=== PATIENT | female | born 1945 | race American Indian/Alaskan Native ===

== ENCOUNTER 2017-02-23 07:48 | Inpatient (IN) | payer MEDICARE ==
[2017-02-23 11:34] VITALS: BMI 23.3
[2017-02-23] MEDS ORDERED: Dexamethasone 10 MG in Sodium Chloride 0.9% 50 ML IVPB ONE (11:56)
[2017-02-23] MEDS ORDERED: Lidocaine/Prilocaine CREAM 5GM TP ONE (12:10)
[2017-02-23] MEDS: Sodium Chloride 0.9% 500 ML IV SCH ×2 (12:54→23:34)
[2017-02-23 13:01] LABS: ALB/GLOB RATIO 0.9 (1.0-2.1); ALKALINE PHOSPHATASE 83 U/L (38-126); ALT/SGPT 19 U/L (9-52); AST/SGOT 30 U/L (14-36); BILIRUBIN,TOTAL 0.3 mg/dl (0.2-1.3); BLOOD UREA NITROGEN 11 mg/dl (7-17); CALCIUM 8.8 mg/dL (8.4-10.2); CARBON DIOXIDE 23 mmol/L (22-30); CHLORIDE 110 mmol/L (98-107); GFR AFRICAN-AMERICAN > 60; GLUCOSE,RANDOM 154 mg/dL (65-105); POTASSIUM 3.3 MMOL/L (3.6-5.0); SODIUM 146 mmol/l (132-148); TOTAL PROTEIN 6.6 G/DL (6.3-8.2)
[2017-02-23 13:07] LABS: BASO # 0.1 K/uL (0.0-0.2); BASO % 2.1 % (0.0-2.0); EOS # 0.2 K/uL (0.0-0.7); EOS % 3.4 % (0.0-4.0); HEMATOCRIT 30.4 % (34.0-47.0); LYMPH # 1.9 K/uL (1.0-4.3); LYMPH % 39.5 % (20.0-40.0); MEAN CELL VOLUME 75.8 fl (81.0-99.0); MEAN CORPUSCULAR HEMOGLOBIN 24.8 pg (27.0-31.0); MEAN CORPUSCULAR HGB CONC 32.7 g/dL (33.0-37.0); MEAN PLATELET VOLUME 7.4 fl (7.2-11.7); MONO # 0.8 K/uL (0.0-0.8); NEUT # 1.8 K/uL (1.8-7.0); NRBC % 0.1 % (0.0-0.0); RED CELL DISTRIBUTION WIDTH 21.6 % (11.5-14.5); WHITE BLOOD COUNT 4.7 K/uL (4.8-10.8)
[2017-02-23] MEDS ORDERED: Fosaprepitant 150 MG in Sodium Chloride 0.9% 250 ML IVPB ONE (13:45)
[2017-02-23] MEDS ORDERED: LEUCOVORIN CALCIUM IVPB ONE (14:15)
[2017-02-23] MEDS ORDERED: OXALIPLATIN IV ONE (14:15)
[2017-02-23] MEDS ORDERED: WATER IVPB ONE (14:15)
[2017-02-23] MEDS ORDERED: WATER IV ONE (14:15)
[2017-02-23] MEDS ORDERED: DEXTROSE 5% IV ONE (14:15)
[2017-02-23] MEDS ORDERED: DEXTROSE 5% IVPB ONE (14:15)
[2017-02-23] MEDS ORDERED: SODIUM CHLORIDE 0.9% IV ONE ×3 (16:30→17:00)
[2017-02-23] MEDS ORDERED: BEVACIZUMAB IV ONE (16:30)
[2017-02-23] MEDS ORDERED: FLUOROURACIL IV ONE ×2 (16:30→17:00)
[2017-02-23] MEDS: Enoxaparin 40 mg Syringe SC SCH (18:16)
--- NOTE | 2017-02-23 18:40 | HP ---
HISTORY OF PRESENT ILLNESS: This is a 71-year-old -Slovenian female with history of multiple m edical problems including colorectal cancer on chemotherapy, was admitted to the hospital for the marcia eduled dose of chemotherapy. The patient stated that she has incontinence both to urine and to bowel , more to urine. The patient has been compliant with chemotherapy visits. The patient denied to hav e any nausea or vomiting. REVIEW OF SYSTEMS: Other review of systems is negative. ALLERGIES: No known drug allergies. HOME MEDICATIONS: Lopressor 50 mg q. 12 hours, amlodipine 10 mg daily, risperidone 0.5 mg every 8 ho urs as needed, vitamin C 500 mg daily. PAST MEDICAL HISTORY: Colorectal cancer, hypertension, overactive bladder. SOCIAL HISTORY: No history of smoking, ETOH or substance abuse. FAMILY HISTORY: Noncontributory. PHYSICAL EXAMINATION: GENERAL: The patient is in bed, comfortable, not in any cardiopulmonary distress at the time of this examination. VITAL SIGNS: Blood pressure 150/76, temperature 98, respiratory rate 20, and pulse 84. HEENT: Pupils equal, reactive to light. Normal-appearing mucosa of the conjunctivae, oropharyngeal and nasal membrane mucosa. NECK: Supple, no JVD, no carotid bruit, no lymph node, no thyromegaly. CHEST AND LUNGS: Bilateral symmetrical expansion, good air exchange, no rales, no rhonchi. CARDIOVASCULAR: PMI not localized. S1, S2. No additional sounds. ABDOMEN: Normoactive bowel sounds, no tenderness, no organomegaly, no masses. EXTREMITIES: No cyanosis, no clubbing, no edema. CENTRAL NERVOUS SYSTEM: Alert, awake, oriented x 3. No neurological deficits could be appreciated. ASSESSMENT: Colorectal cancer, overactive bladder, hypertension. PLAN: We will order blood work and follow the results. We will start the patient on Ditropan 5 mg d aily. Oncology consultation with Dr. Miller for chemotherapy orders. Jesus Pandya MD cc: [phone] TT: 02/23/2017 18:40:04 [place]
[2017-02-24] MEDS: Sodium Chloride 0.9% 500 ML IV SCH ×3 (04:27→21:33)
[2017-02-24] MEDS: Enoxaparin 40 mg Syringe SC SCH (09:24)
--- NOTE | 2017-02-24 11:26 | CP.PCM.CON ---
History of Present Illness - History of Present Illness History of Present Illness: This is a 71 yrs old female who was diagnosed to have a colon cancer about 2 months ago. She has a mass in the rectosigmoid area which was almost completely obstructing the lumen. It was decided to give her neoadjuvant chemotherapy with folfox +avastin. She is here for her 4th dose and is doing very well, with no pain, no rectal bleeding. Past h/o Schizophrenic disorder and HTN Past Patient History - Past Medical History & Family History Past Medical History?: Yes - Past Social History Smoking Status: Never Smoked - CARDIAC Hx Cardiac Disorders: No - PULMONARY Hx Respiratory Disorders: No - NEUROLOGICAL Hx Neurological Disorder: No - HEENT Hx HEENT Problems: No - RENAL Hx Chronic Kidney Disease: No - ENDOCRINE/METABOLIC Hx Endocrine Disorders: No - HEMATOLOGICAL/ONCOLOGICAL Hx AIDS: No Hx Anemia: Yes Hx Cancer: Yes Hx Chemotherapy: Yes Hx Human Immunodeficiency Virus (HIV): No - INTEGUMENTARY Hx Dermatological Problems: No - MUSCULOSKELETAL/RHEUMATOLOGICAL Hx Falls: Yes - GASTROINTESTINAL Hx Colitis: Yes - GENITOURINARY/GYNECOLOGICAL Hx Incontinence: Yes - PSYCHIATRIC Hx Substance Use: No - SURGICAL HISTORY Hx Cholecystectomy: Yes Other/Comment: IVC Filter insertion, ifeport insertion - ANESTHESIA Hx Anesthesia: Yes Hx Anesthesia Reactions: No Meds Allergies/Adverse Reactions: Allergies Allergy/AdvReac Type Severity Reaction Status Date / Time No Known Allergies Allergy Verified 01/15/17 18:00 - Medications Medications: Current Medications Acetaminophen (Tylenol 325mg Tab) 650 mg PO Q4 PRN PRN Reason: Fever >100.4 F Amlodipine Besylate (Norvasc) 10 mg PO DAILY [facility] Last Admin: 02/24/17 09:25 Dose: 10 mg Ascorbic Acid (Vitamin C 500 Mg Tab) 500 mg PO DAILY [facility] Last Admin: 02/24/17 09:25 Dose: 500 mg Docusate Sodium (Colace) 100 mg PO DAILY [facility] Last Admin: 02/24/17 09:19 Dose: Not Given Enoxaparin Sodium (Lovenox) 40 mg SC DAILY [facility] PRN Reason: Protocol Last Admin: 02/24/17 09:24 Dose: Not Given Ferrous Sulfate (Feosol) 325 mg PO BID [facility] Last Admin: 02/24/17 09:21 Dose: 325 mg Sodium Chloride (Sodium Chloride 0.9%) 500 mls @ 90 mls/hr IV .Q5H34M [facility] Last Admin: 02/24/17 04:27 Dose: Not Given Fluorouracil 4,056 mg/ Sodium (Chloride) 1,081.12 mls @ 24.571 mls/hr IV ONCE ONE Stop: 02/25/17 12:59 Last Admin: 02/23/17 17:39 Dose: 24.571 mls/hr Metoprolol Tartrate (Lopressor) 50 mg PO Q12 [facility] Last Admin: 02/24/17 09:22 Dose: 50 mg Oxybutynin Chloride (Ditropan Tab) 5 mg PO BID [facility] Last Admin: 02/24/17 09:21 Dose: 5 mg Risperidone (Risperdal Tab) 0.5 mg PO Q8 PRN PRN Reason: Agitation Physical Exam - Additional Findings Additional findings: Physical exam'; Alert, well oriented in no acute distress neck; Supple, no adenopathy Chest; Clear, no rales or rhoncjhi Heart, rsr,no murmur Abd; Soft, no mass, no h/s megaly Results - Vital Signs Recent Vital Signs: Last Vital Signs Temp 97.6 F 02/24/17 08:18 Pulse 74 02/24/17 09:25 Resp 20 02/24/17 08:18 BP 174/81 H 02/24/17 09:25 Pulse Ox 100 02/24/17 08:18 - Labs Result Diagrams: 02/23/17 12:37 02/23/17 12:37 Labs: Laboratory Results - last 24 hr 02/23/17 12:37 WBC 4.7 L RBC 4.01 Hgb 10.0 L Hct 30.4 L MCV 75.8 L MCH 24.8 L MCHC 32.7 L RDW 21.6 H Plt Count 225 MPV 7.4 Neut % (Auto) 38.0 L Lymph % (Auto) 39.5 [place] % (Auto) 17.0 H Eos % (Auto) 3.4 Baso % (Auto) 2.1 H Neut # 1.8 Lymph # 1.9 [place] # 0.8 Eos # 0.2 Baso # 0.1 Sodium 146 Potassium 3.3 L Chloride 110 H Carbon Dioxide 23 Anion Gap 16 BUN 11 Creatinine 0.7 Est GFR ( Amer) > 60 Est GFR (Non-Af Amer) > 60 Random Glucose 154 H Calcium 8.8 Total Bilirubin 0.3 AST 30 ALT 19 Alkaline Phosphatase 83 Total Protein 6.6 Albumin 3.2 L Globulin 3.4 Albumin/Globulin Ratio 0.9 L Carcinoembryonic Ag 471.0 H Assessment & Plan - Assessment and Plan (Free Text) Assessment: Impression; Colon cancer. Plan: Plan; Will give fluorouracil, leucovorin, avastin, and oxaliplatin today then fluorouracil over the next 44 hrs
--- NOTE | 2017-02-24 11:30 | CP.PCM.CON ---
Past Patient History - Past Medical History & Family History Past Medical History?: Yes - Past Social History Smoking Status: Never Smoked - CARDIAC Hx Cardiac Disorders: No - PULMONARY Hx Respiratory Disorders: No - NEUROLOGICAL Hx Neurological Disorder: No - HEENT Hx HEENT Problems: No - RENAL Hx Chronic Kidney Disease: No - ENDOCRINE/METABOLIC Hx Endocrine Disorders: No - HEMATOLOGICAL/ONCOLOGICAL Hx AIDS: No Hx Anemia: Yes Hx Cancer: Yes Hx Chemotherapy: Yes Hx Human Immunodeficiency Virus (HIV): No - INTEGUMENTARY Hx Dermatological Problems: No - MUSCULOSKELETAL/RHEUMATOLOGICAL Hx Falls: Yes - GASTROINTESTINAL Hx Colitis: Yes - GENITOURINARY/GYNECOLOGICAL Hx Incontinence: Yes - PSYCHIATRIC Hx Substance Use: No - SURGICAL HISTORY Hx Cholecystectomy: Yes Other/Comment: IVC Filter insertion, ifeport insertion - ANESTHESIA Hx Anesthesia: Yes Hx Anesthesia Reactions: No Meds Allergies/Adverse Reactions: Allergies Allergy/AdvReac Type Severity Reaction Status Date / Time No Known Allergies Allergy Verified 01/15/17 18:00 - Medications Medications: Current Medications Acetaminophen (Tylenol 325mg Tab) 650 mg PO Q4 PRN PRN Reason: Fever >100.4 F Amlodipine Besylate (Norvasc) 10 mg PO DAILY [facility] Last Admin: 02/24/17 09:25 Dose: 10 mg Ascorbic Acid (Vitamin C 500 Mg Tab) 500 mg PO DAILY [facility] Last Admin: 02/24/17 09:25 Dose: 500 mg Docusate Sodium (Colace) 100 mg PO DAILY [facility] Last Admin: 02/24/17 09:19 Dose: Not Given Enoxaparin Sodium (Lovenox) 40 mg SC DAILY [facility] PRN Reason: Protocol Last Admin: 02/24/17 09:24 Dose: Not Given Ferrous Sulfate (Feosol) 325 mg PO BID [facility] Last Admin: 02/24/17 09:21 Dose: 325 mg Sodium Chloride (Sodium Chloride 0.9%) 500 mls @ 90 mls/hr IV .Q5H34M [facility] Last Admin: 02/24/17 04:27 Dose: Not Given Fluorouracil 4,056 mg/ Sodium (Chloride) 1,081.12 mls @ 24.571 mls/hr IV ONCE ONE Stop: 02/25/17 12:59 Last Admin: 02/23/17 17:39 Dose: 24.571 mls/hr Metoprolol Tartrate (Lopressor) 50 mg PO Q12 [facility] Last Admin: 02/24/17 09:22 Dose: 50 mg Oxybutynin Chloride (Ditropan Tab) 5 mg PO BID [facility] Last Admin: 02/24/17 09:21 Dose: 5 mg Risperidone (Risperdal Tab) 0.5 mg PO Q8 PRN PRN Reason: Agitation Results - Vital Signs Recent Vital Signs: Last Vital Signs Temp 97.6 F 02/24/17 08:18 Pulse 74 02/24/17 09:25 Resp 20 02/24/17 08:18 BP 174/81 H 02/24/17 09:25 Pulse Ox 100 02/24/17 08:18 - Labs Result Diagrams: 02/23/17 12:37 02/23/17 12:37 Labs: Laboratory Results - last 24 hr 02/23/17 12:37 WBC 4.7 L RBC 4.01 Hgb 10.0 L Hct 30.4 L MCV 75.8 L MCH 24.8 L MCHC 32.7 L RDW 21.6 H Plt Count 225 MPV 7.4 Neut % (Auto) 38.0 L Lymph % (Auto) 39.5 [place] % (Auto) 17.0 H Eos % (Auto) 3.4 Baso % (Auto) 2.1 H Neut # 1.8 Lymph # 1.9 [place] # 0.8 Eos # 0.2 Baso # 0.1 Sodium 146 Potassium 3.3 L Chloride 110 H Carbon Dioxide 23 Anion Gap 16 BUN 11 Creatinine 0.7 Est GFR ( Amer) > 60 Est GFR (Non-Af Amer) > 60 Random Glucose 154 H Calcium 8.8 Total Bilirubin 0.3 AST 30 ALT 19 Alkaline Phosphatase 83 Total Protein 6.6 Albumin 3.2 L Globulin 3.4 Albumin/Globulin Ratio 0.9 L Carcinoembryonic Ag 471.0 H
[2017-02-24 11:35] LABS: BLOOD UREA NITROGEN 12 mg/dl (7-17); CALCIUM 9.3 mg/dL (8.4-10.2); CARBON DIOXIDE 22 mmol/L (22-30); CHLORIDE 109 mmol/L (98-107); GFR AFRICAN-AMERICAN > 60; GLUCOSE,RANDOM 291 mg/dL (65-105); SODIUM 144 mmol/l (132-148)
--- NOTE | 2017-02-24 13:28 | PN ---
DATE: 02/24/2017 SUBJECTIVE: The patient is seen today, 02/24/2017. She is on chemotherapy and tolerating well. PHYSICAL EXAMINATION: VITAL SIGNS: Blood pressure is 174/81, temperature 97.6, respiratory rate 20, and pulse is 74. HEENT: Pupils equal, reactive to light. Normal-appearing mucosa of the conjunctivae, oropharyngeal and nasal membrane mucosa. NECK: Supple, no JVD, no carotid bruit, no lymph node, no thyromegaly. CHEST AND LUNGS: Bilateral symmetrical expansion, good air exchange, no rales, no rhonchi. CARDIOVASCULAR: PMI not localized. S1, S2. No additional sounds. ABDOMEN: Normoactive bowel sounds, no tenderness, no organomegaly, no masses. EXTREMITIES: No cyanosis, no clubbing, no edema. CENTRAL NERVOUS SYSTEM: Alert, awake, oriented x 3. No neurological deficits could be appreciated. ASSESSMENT: Colorectal cancer, hypokalemia, hypertension. PLAN: Continue current medications. The patient was started on Ditropan, treating overactive bladde r and if patient remains hypokalemic with hypertension, we will work up for hyperaldosteronism. Jesus Pandya MD cc: [phone] TT: 02/24/2017 13:27:59 Confirmation # [id number] Dictation # [id number]
[2017-02-25] MEDS: Sodium Chloride 0.9% 500 ML IV SCH (02:55)
[2017-02-25 08:17] VITALS: O2SAT 100
[2017-02-25] MEDS: Enoxaparin 40 mg Syringe SC SCH (09:49)
--- NOTE | 2017-02-25 13:16 | CP.PCM.PN ---
Subjective - Date & Time of Evaluation Date of Evaluation: 02/25/17 Time of Evaluation: 13:14 - Subjective Subjective: Pt is on the last day of chemotherapy infusion.No nausea or vomiting. Her appetite is good as well. She will be discharged today with orders to return in 2 weeks for chemotherapy. Objective - Vital Signs/Intake and Output Vital Signs (last 24 hours): Temp Pulse Resp BP Pulse Ox 98.2 F 64 18 153/73 H 100 02/25/17 08:17 02/25/17 09:25 02/25/17 08:17 02/25/17 09:25 02/25/17 08:17 - Medications Medications: Current Medications Acetaminophen (Tylenol 325mg Tab) 650 mg PO Q4 PRN PRN Reason: Fever >100.4 F Amlodipine Besylate (Norvasc) 10 mg PO DAILY [facility] Last Admin: 02/25/17 09:50 Dose: Not Given Ascorbic Acid (Vitamin C 500 Mg Tab) 500 mg PO DAILY [facility] Last Admin: 02/25/17 09:50 Dose: Not Given Docusate Sodium (Colace) 100 mg PO DAILY [facility] Last Admin: 02/25/17 09:21 Dose: Not Given Enoxaparin Sodium (Lovenox) 40 mg SC DAILY [facility] PRN Reason: Protocol Last Admin: 02/25/17 09:49 Dose: Not Given Ferrous Sulfate (Feosol) 325 mg PO BID [facility] Last Admin: 02/25/17 09:27 Dose: 325 mg Sodium Chloride (Sodium Chloride 0.9%) 500 mls @ 90 mls/hr IV .Q5H34M [facility] Last Admin: 02/25/17 02:55 Dose: Not Given Metoprolol Tartrate (Lopressor) 50 mg PO Q12 [facility] Last Admin: 02/25/17 09:25 Dose: 50 mg Oxybutynin Chloride (Ditropan Tab) 5 mg PO BID [facility] Last Admin: 02/25/17 09:26 Dose: 5 mg Risperidone (Risperdal Tab) 0.5 mg PO Q8 PRN PRN Reason: Agitation - Labs Labs: 02/23/17 12:37 02/24/17 11:15
[2017-02-25 13:56] LABS: HEMATOCRIT 31.3 % (34.0-47.0); MEAN CELL VOLUME 75.6 fl (81.0-99.0); MEAN CORPUSCULAR HEMOGLOBIN 24.8 pg (27.0-31.0); MEAN CORPUSCULAR HGB CONC 32.7 g/dL (33.0-37.0); RED CELL DISTRIBUTION WIDTH 21.9 % (11.5-14.5); WHITE BLOOD COUNT 3.9 K/uL (4.8-10.8)
[2017-02-25 14:07] LABS: CHLORIDE 106 mmol/L (98-107); POTASSIUM 3.7 MMOL/L (3.6-5.0); SODIUM 139 mmol/l (132-148)
[2017-02-25 14:09] LABS: GFR AFRICAN-AMERICAN > 60
[2017-02-25 14:10] LABS: BLOOD UREA NITROGEN 13 mg/dl (7-17); CALCIUM 8.7 mg/dL (8.4-10.2); CARBON DIOXIDE 25 mmol/L (22-30); GLUCOSE,RANDOM 164 mg/dL (65-105)
[2017-02-25 17:09] VITALS: BP 138/58; PULSE 62; RESP 20; TEMP 98.5
--- NOTE | 2017-02-26 00:38 | DS ---
REASON FOR ADMISSION: This is a 71-year-old -Martiniquais female with history of cancer colon, tamez s been on chemo therapy. She was admitted for her fourth cycle of chemotherapy. COURSE OF HOSPITALIZATION: The patient had oncology consultation done by Dr. Miller. The patient was started on her regular scheduled dose of chemotherapy and she tolerated it well. The patient was co mplaining of urinary incontinence such as overactive bladder. The patient was started on oxybutynin. This patient was discharged in a stable condition to follow up with her primary care physician and with oncology. FINAL DIAGNOSES: 1. Colorectal cancer, on chemotherapy. 2. Anemia, multifactorial. 3. Hypertension. 4. Overactive bladder. Jesus Pandya MD cc: 167 TT: 02/26/2017 00:38:30 [place]
== END 2017-02-25 18:32 | disposition home or self-care (01) | DRG 847 ==
LOC: H.MEDSURG1 11:43
PROVIDERS: ADMIT Internal Medicine; ATTEND Internal Medicine
DX: Z51.11 Encounter for antineoplastic chemotherapy (principal); C19 Malignant neoplasm of rectosigmoid junction; D64.9 Anemia, unspecified; I10 Essential (primary) hypertension; N32.81 Overactive bladder; R32 Unspecified urinary incontinence; E87.6 Hypokalemia

== ENCOUNTER 2017-03-09 09:34 | Inpatient (IN) | payer MEDICARE ==
[2017-03-09 10:53] VITALS: BMI 22.5
[2017-03-09] MEDS ORDERED: Lidocaine/Prilocaine CREAM 5GM TP ONE ×2 (11:40→11:50)
[2017-03-09] MEDS ORDERED: Dexamethasone 10 MG in Sodium Chloride 0.9% 50 ML IVPB ONE (12:15)
[2017-03-09] MEDS ORDERED: Fosaprepitant 150 MG in Sodium Chloride 0.9% 250 ML IVPB ONE (12:19)
[2017-03-09 12:38] LABS: ALB/GLOB RATIO 0.9 (1.0-2.1); ALKALINE PHOSPHATASE 82 U/L (38-126); ALT/SGPT 18 U/L (9-52); AST/SGOT 26 U/L (14-36); BILIRUBIN,TOTAL 0.4 mg/dl (0.2-1.3); BLOOD UREA NITROGEN 10 mg/dl (7-17); CALCIUM 9.3 mg/dL (8.4-10.2); CARBON DIOXIDE 26 mmol/L (22-30); CHLORIDE 106 mmol/L (98-107); GFR AFRICAN-AMERICAN > 60; GLUCOSE,RANDOM 178 mg/dL (65-105); POTASSIUM 3.4 MMOL/L (3.6-5.0); SODIUM 140 mmol/l (132-148); TOTAL PROTEIN 6.9 G/DL (6.3-8.2)
[2017-03-09 12:42] LABS: BASO # 0.1 K/uL (0.0-0.2); BASO % 1.9 % (0.0-2.0); EOS # 0.1 K/uL (0.0-0.7); EOS % 4.2 % (0.0-4.0); HEMATOCRIT 31.3 % (34.0-47.0); LYMPH # 1.4 K/uL (1.0-4.3); MEAN CORPUSCULAR HGB CONC 32.9 g/dL (33.0-37.0); MEAN PLATELET VOLUME 7.2 fl (7.2-11.7); MONO # 0.6 K/uL (0.0-0.8); MONO % 19.7 % (0.0-10.0); NEUT # 0.9 K/uL (1.8-7.0); NEUT % 28.2 % (50.0-75.0); NRBC % 0.3 % (0.0-0.0); RED CELL DISTRIBUTION WIDTH 21.5 % (11.5-14.5); WHITE BLOOD COUNT 3.1 K/uL (4.8-10.8)
[2017-03-09] MEDS: Sodium Chloride 0.9% 500 ML IV SCH ×2 (12:57→17:31)
[2017-03-09] MEDS ORDERED: Potassium Chloride 20 mEq ER Tab PO ONE (13:03)
[2017-03-09] MEDS ORDERED: WATER IVPB ONE (13:15)
[2017-03-09] MEDS ORDERED: OXALIPLATIN IV ONE (13:15)
[2017-03-09] MEDS ORDERED: WATER IV ONE (13:15)
[2017-03-09] MEDS ORDERED: DEXTROSE 5% IVPB ONE (13:15)
[2017-03-09] MEDS ORDERED: BEVACIZUMAB IV ONE (13:15)
[2017-03-09] MEDS ORDERED: SODIUM CHLORIDE 0.9% IV ONE ×3 (13:15→15:45)
[2017-03-09] MEDS ORDERED: DEXTROSE 5% IV ONE (13:15)
[2017-03-09] MEDS ORDERED: LEUCOVORIN CALCIUM IVPB ONE (13:15)
[2017-03-09] MEDS ORDERED: FLUOROURACIL IV ONE ×2 (15:15→15:45)
--- NOTE | 2017-03-09 16:27 | CP.PCM.CON ---
History of Present Illness - History of Present Illness History of Present Illness: This is a 71 yrs old female who was diagnosed to have a almost completely obstructing mass in the rectosigmoid area. She was inoperable and it was decided to give her neoadjuvant chemotherapy. Initially her appetite was very poor, and she has fair amount of rectal bleeding. Since she has been getting the chemo, her appetite is good, no more rectal bleeding. She is admitted for chemo with FOLFOX + Avastin. After the next treatment she will be reevaluated for surgery. She has a past h/o HTN and bipolar disorder. Past Patient History - Past Medical History & Family History Past Medical History?: Yes - Past Social History Smoking Status: Former Smoker - CARDIAC Hx Cardiac Disorders: No - PULMONARY Hx Respiratory Disorders: No - NEUROLOGICAL Hx Neurological Disorder: No - HEENT Hx HEENT Problems: No - RENAL Hx Chronic Kidney Disease: No - ENDOCRINE/METABOLIC Hx Endocrine Disorders: No - HEMATOLOGICAL/ONCOLOGICAL Hx AIDS: No Hx Anemia: Yes Hx Cancer: Yes Hx Chemotherapy: Yes Hx Human Immunodeficiency Virus (HIV): No - INTEGUMENTARY Hx Dermatological Problems: No - MUSCULOSKELETAL/RHEUMATOLOGICAL Hx Falls: Yes - GASTROINTESTINAL Hx Colitis: No - GENITOURINARY/GYNECOLOGICAL Hx Incontinence: Yes - PSYCHIATRIC Hx Substance Use: No - SURGICAL HISTORY Hx Cholecystectomy: Yes Other/Comment: IVC Filter insertion, ifeport insertion - ANESTHESIA Hx Anesthesia: Yes Hx Anesthesia Reactions: No Meds Allergies/Adverse Reactions: Allergies Allergy/AdvReac Type Severity Reaction Status Date / Time No Known Allergies Allergy Verified 01/15/17 18:00 - Medications Medications: Current Medications Acetaminophen (Tylenol 325mg Tab) 650 mg PO Q4 PRN PRN Reason: Fever >100.4 F Amlodipine Besylate (Norvasc) 10 mg PO DAILY [facility] Ascorbic Acid (Vitamin C 500 Mg Tab) 500 mg PO DAILY [facility] Enoxaparin Sodium (Lovenox) 40 mg SC DAILY [facility] PRN Reason: Protocol Ferrous Sulfate (Feosol) 325 mg PO BID [facility] Sodium Chloride (Sodium Chloride 0.9%) 500 mls @ 90 mls/hr IV .Q5H34M [facility] Last Admin: 03/09/17 12:57 Dose: 90 mls/hr Fluorouracil 4,056 mg/ Sodium (Chloride) 1,081.12 mls @ 24.571 mls/hr IV ONCE ONE PRN Reason: As Directed Stop: 03/11/17 11:44 Metoprolol Tartrate (Lopressor) 50 mg PO Q12 [facility] Risperidone (Risperdal Tab) 0.5 mg PO Q8 PRN PRN Reason: Agitation Physical Exam - Additional Findings Additional findings: Physical Exam; alert, well opriented in no acute distress neck supple, no adenopathy Chest; Clear, no rales or rhonchi Heart; RSR, n o murmur Abd soft, no mass no h/s megaly Results - Vital Signs Recent Vital Signs: Last Vital Signs Temp Pulse Resp 20 03/09/17 11:18 BP Pulse Ox - Labs Result Diagrams: 03/09/17 12:15 03/09/17 12:15 Labs: Laboratory Results - last 24 hr 03/09/17 03/09/17 12:15 12:15 WBC 3.1 L RBC 4.11 Hgb 10.3 L Hct 31.3 L MCV 76.0 L MCH 25.0 L MCHC 32.9 L RDW 21.5 H Plt Count 222 MPV 7.2 Neut % (Auto) 28.2 L Lymph % (Auto) 46.0 H [place] % (Auto) 19.7 H Eos % (Auto) 4.2 H Baso % (Auto) 1.9 Neut # 0.9 L Lymph # 1.4 [place] # 0.6 Eos # 0.1 Baso # 0.1 Sodium 140 Potassium 3.4 L Chloride 106 Carbon Dioxide 26 Anion Gap 11 BUN 10 Creatinine 0.7 Est GFR ( Amer) > 60 Est GFR (Non-Af Amer) > 60 Random Glucose 178 H Calcium 9.3 Total Bilirubin 0.4 AST 26 ALT 18 Alkaline Phosphatase 82 Total Protein 6.9 Albumin 3.3 L Globulin 3.6 Albumin/Globulin Ratio 0.9 L Carcinoembryonic Ag 377.0 H Assessment & Plan - Assessment and Plan (Free Text) Assessment: Impression; Colon cancer admitted for chemotherapy. Plan: Plan; Will give oxaliplatin, leucovorin, fluorouracil and avastin today, then continue the fluorouracil for 44 hrs - Date & Time Date: 03/09/17 Time: 16:31
--- NOTE | 2017-03-09 22:05 | HP ---
HISTORY OF PRESENT ILLNESS: This is a 71-year-old -[place]oz[place] female, who was admitted for chem otherapy cycle. The patient has been diagnosed with metastatic colorectal cancer for which she is se eking chemotherapy. The patient denied to have any fever, shortness of breath. HOME MEDICATIONS: Risperidone 0.5 mg three times a day, amlodipine 10 mg daily, metoprolol 50 mg manoj ry 12 hours, ferrous sulfate 325 mg twice a day, vitamin C 500 mg daily. SOCIAL HISTORY: No history of smoking, ETOH, or substance abuse. PHYSICAL EXAMINATION: GENERAL: The patient is in bed, comfortable, not in any cardiopulmonary distress. VITAL SIGNS: Blood pressure of 147/78, temperature 98.5, respiratory rate 20, and pulse 64. HEENT: Pupils equal, reactive to light. Normal-appearing mucosa of the conjunctivae, oropharyngeal, and nasal membrane mucosa. NECK: Supple, no JVD, no carotid bruit, no lymph node, no thyromegaly. CHEST AND LUNGS: Bilateral symmetrical expansion, good air exchange, no rales, no rhonchi. CARDIOVASCULAR: PMI not localized. S1, S2. No additional sounds. ABDOMEN: Normoactive bowel sounds, no tenderness, no organomegaly, no masses. EXTREMITIES: No cyanosis, no clubbing, no edema. CENTRAL NERVOUS SYSTEM: Alert, awake, oriented x 2. No neurological deficits could be appreciated. ASSESSMENT: 1. Metastatic colorectal cancer, currently on chemotherapy. 2. Hypertension. 3. Overactive bladder. PLAN: 1. Oncology consultation and follow recommendations. 2. Check complete blood count and check for any electrolyte abnormalities, and complete blood count. Jesus Pandya MD cc: 167 TT: 03/09/2017 22:04:12 [place]
[2017-03-10] MEDS: Enoxaparin 40 mg Syringe SC SCH ×2 (09:28→09:37)
--- NOTE | 2017-03-10 10:18 | CP.PCM.PN ---
Subjective - Date & Time of Evaluation Date of Evaluation: 03/10/17 Time of Evaluation: 10:15 - Subjective Subjective: Pt has no more side effects from the chemotherapy given yesterday. She is on the 2nd day of fluorocil infusion, and doing well. She will be discharged tomorrow after the infusion finishes to return in 2 weeks for the next course of chemotherapy Objective - Vital Signs/Intake and Output Vital Signs (last 24 hours): Temp Pulse Resp BP Pulse Ox 98.3 F 76 18 167/84 H 99 03/10/17 08:31 03/10/17 09:28 03/10/17 08:31 03/10/17 09:28 03/10/17 08:31 - Medications Medications: Current Medications Acetaminophen (Tylenol 325mg Tab) 650 mg PO Q4 PRN PRN Reason: Fever >100.4 F Amlodipine Besylate (Norvasc) 10 mg PO DAILY [facility] Last Admin: 03/10/17 09:28 Dose: 10 mg Ascorbic Acid (Vitamin C 500 Mg Tab) 500 mg PO DAILY [facility] Last Admin: 03/10/17 09:29 Dose: 500 mg Enoxaparin Sodium (Lovenox) 40 mg SC DAILY [facility] PRN Reason: Protocol Last Admin: 03/10/17 09:37 Dose: Not Given Ferrous Sulfate (Feosol) 325 mg PO BID [facility] Last Admin: 03/10/17 09:26 Dose: 325 mg Sodium Chloride (Sodium Chloride 0.9%) 500 mls @ 90 mls/hr IV .Q5H34M [facility] Last Admin: 03/09/17 17:31 Dose: Not Given Fluorouracil 4,056 mg/ Sodium (Chloride) 1,081.12 mls @ 24.571 mls/hr IV ONCE ONE PRN Reason: As Directed Stop: 03/11/17 11:44 Last Admin: 03/09/17 17:49 Dose: 24.571 mls/hr Metoprolol Tartrate (Lopressor) 50 mg PO Q12 [facility] Last Admin: 03/10/17 09:26 Dose: 50 mg Oxybutynin Chloride (Ditropan Tab) 5 mg PO DAILY [facility] Last Admin: 03/10/17 09:26 Dose: 5 mg Risperidone (Risperdal Tab) 0.5 mg PO Q8 PRN PRN Reason: Agitation - Labs Labs: 03/09/17 12:15 03/09/17 12:15
--- NOTE | 2017-03-10 13:33 | PQF GENQUE ---
Dr. Pandya, Is there an associated diagnosis to go along with the following clinical labs and medication ordered ? WBC: 3.1; H/H:10.3/31.3; ferrous sulfate 325 mg po BID OR: Disagree OR: Other explanation of clinical findings Oncology consult: Hx Anemia: Yes Assessment: Impression; Colon cancer admitted for chemotherapy This form is a permanent part of the medical record Clarification of your documentation is requested to better reflect the severity of illness and intensity of treatment of your patient. Indicators present [] Specify: [] [] Specify: [] [] Specify: [] [] Specify: [] Location in the medical record that reflects the above clinical findings: [] Treatment Provided: [] PHYSICIAN'S RESPONSE Based on your medical judgment of the clinical indicators outlined above please clarify the following: [] Practitioner response [] If unable to determine, please check the box, sign and date. Present On Admission (POA) Indicator: [] Present at the time of admission [] Not present at the time of admission [] Clinically Undetermined In responding to this query, please exercise your independent professional judgment. The fact that a question is asked does not imply that any particular answer is desired or expected. Thank you for your clarification on this documentation. If you have any questions please call. * Thank you, Kelly Lucas RN BSN ext. #[phone] MTDD
[2017-03-10 16:29] VITALS: O2SAT 100
[2017-03-10] MEDS: Sodium Chloride 0.9% 500 ML IV SCH ×2 (16:51→16:52)
[2017-03-11 06:59] LABS: HEMATOCRIT 31.8 % (34.0-47.0); MEAN CELL VOLUME 76.3 fl (81.0-99.0); MEAN CORPUSCULAR HGB CONC 32.7 g/dL (33.0-37.0); RED CELL DISTRIBUTION WIDTH 21.9 % (11.5-14.5); WHITE BLOOD COUNT 2.7 K/uL (4.8-10.8)
[2017-03-11 07:17] LABS: BLOOD UREA NITROGEN 12 mg/dl (7-17); CALCIUM 9.1 mg/dL (8.4-10.2); CARBON DIOXIDE 21 mmol/L (22-30); CHLORIDE 109 mmol/L (98-107); GFR AFRICAN-AMERICAN > 60; GLUCOSE,RANDOM 134 mg/dL (65-105); POTASSIUM 3.8 MMOL/L (3.6-5.0); SODIUM 139 mmol/l (132-148)
[2017-03-11] MEDS: Sodium Chloride 0.9% 500 ML IV SCH (08:25)
[2017-03-11] MEDS: Enoxaparin 40 mg Syringe SC SCH (08:26)
[2017-03-11 08:31] VITALS: BP 172/79; PULSE 54; RESP 20; TEMP 98.2
--- NOTE | 2017-03-11 09:55 | CP.PCM.PN ---
Subjective - Date & Time of Evaluation Date of Evaluation: 03/11/17 Time of Evaluation: 09:52 - Subjective Subjective: Pt had some abdominal cramps today. No constipation or diarrhea,. She is on her 3rd day of the fluorouracil infusion. Will be discharged after the infusion finishes. She will return on thursday for the neulasta. Objective - Vital Signs/Intake and Output Vital Signs (last 24 hours): Temp Pulse Resp BP Pulse Ox 98.2 F 54 L 20 172/79 H 100 03/11/17 08:31 03/11/17 08:31 03/11/17 08:31 03/11/17 08:31 03/11/17 08:31 - Medications Medications: Current Medications Acetaminophen (Tylenol 325mg Tab) 650 mg PO Q4 PRN PRN Reason: Fever >100.4 F Amlodipine Besylate (Norvasc) 10 mg PO DAILY [facility] Last Admin: 03/11/17 08:24 Dose: 10 mg Ascorbic Acid (Vitamin C 500 Mg Tab) 500 mg PO DAILY [facility] Last Admin: 03/11/17 08:24 Dose: 500 mg Dicyclomine HCl (Bentyl) 10 mg PO TID PRN PRN Reason: Irritable bowel symptoms Enoxaparin Sodium (Lovenox) 40 mg SC DAILY [facility] PRN Reason: Protocol Last Admin: 03/11/17 08:26 Dose: Not Given Ferrous Sulfate (Feosol) 325 mg PO BID [facility] Last Admin: 03/11/17 08:25 Dose: 325 mg Sodium Chloride (Sodium Chloride 0.9%) 500 mls @ 90 mls/hr IV .Q5H34M [facility] Last Admin: 03/11/17 08:25 Dose: Not Given Fluorouracil 4,056 mg/ Sodium (Chloride) 1,081.12 mls @ 24.571 mls/hr IV ONCE ONE PRN Reason: As Directed Stop: 03/11/17 11:44 Last Admin: 03/09/17 17:49 Dose: 24.571 mls/hr Metoprolol Tartrate (Lopressor) 50 mg PO Q12 [facility] Last Admin: 03/11/17 08:25 Dose: 50 mg Oxybutynin Chloride (Ditropan Tab) 5 mg PO DAILY [facility] Last Admin: 03/11/17 08:24 Dose: 5 mg Risperidone (Risperdal Tab) 0.5 mg PO Q8 PRN PRN Reason: Agitation - Labs Labs: 03/11/17 06:20 03/11/17 06:20
--- NOTE | 2017-03-16 21:32 | DS ---
REASON FOR ADMISSION: This is a 71-year-old female with history of colorectal cance r, was admitted for course of the chemotherapy. COURSE OF HOSPITALIZATION: The patient was admitted to medical floor and she had blood work that was unremarkable. The patient had hematology/oncology consult done by Dr. Miller and she was started on her scheduled dose of chemotherapy that she tolerated well and she was discharged home in stable cond ition to follow with Dr. Pandya and with Dr. Miller. FINAL DIAGNOSES: Colorectal cancer, hypertension, overactive bladder. [facility] S Mumtaz MCCORMICK cc: [phone] TT: 03/16/2017 21:31:36 ln
== END 2017-03-11 17:10 | disposition home or self-care (01) | DRG 847 ==
LOC: H.MEDSURG1 11:12
PROVIDERS: ADMIT Internal Medicine; ATTEND Internal Medicine
DX: Z51.11 Encounter for antineoplastic chemotherapy (principal); C19 Malignant neoplasm of rectosigmoid junction; D63.0 Anemia in neoplastic disease; I10 Essential (primary) hypertension; N32.81 Overactive bladder; D63.8 Anemia in other chronic diseases classified elsewhere; F31.9 Bipolar disorder, unspecified; Z87.891 Personal history of nicotine dependence

== ENCOUNTER 2017-03-16 12:31 | Inpatient (IN) | payer MEDICARE ==
[2017-03-16 12:31] VITALS: BMI 23.1
--- NOTE | 2017-03-16 13:17 | ED PDOC ---
HPI: General Adult Time Seen by Provider: 03/16/17 12:46 Chief Complaint (Nursing): Altered Mental Status Chief Complaint (Provider): confusion / agitation History Per: Patient History/Exam Limitations: no limitations Additional Complaint(s): 71yo female brought in by ambulance for confusion and agitation that began today , according to daughter who made 911 call. Patient reports she is not agitated or confused. Pt says daughter and mother do not agree on everything and daughter thinks patient has bipolar disorder. Per EMS and patient, no slurred speech, dizzziness, headache, weakness. Onset unknown. patient was scheduled to come to the hospital for neupogen injection today. PMD: Jane Miller Past Medical History Reviewed: Historical Data, Nursing Documentation, Vital Signs Vital Signs: Last Vital Signs Temp 97 F L 03/17/17 05:33 Pulse 87 03/17/17 05:33 Resp 18 03/17/17 05:33 BP 163/89 H 03/17/17 05:33 Pulse Ox 100 03/17/17 05:40 - Medical History PMH: Anemia, Arthritis, Bipolar Disorder, Malignancy (colon ca, ), Schizophrenia Denies: HIV, Chronic Kidney Disease - Surgical History Surgical History: Cholecystectomy - Family History Family History: States: Unknown Family Hx - Home Medications Home Medications: Ambulatory Orders Medication Instructions Recorded Acetaminophen [Tylenol 325mg tab] 650 mg PO Q4 PRN #30 tab 01/15/17 Ferrous Sulfate [Feosol] 325 mg PO BID #60 tab 01/15/17 Ascorbic Acid [Vitamin C 500 mg 500 mg PO DAILY #30 tab 01/28/17 Tab] Metoprolol Tartrate [Lopressor] 50 mg PO Q12 #60 tab 01/28/17 amLODIPine [Norvasc] 10 mg PO DAILY #30 tab 01/28/17 risperiDONE [RisperDAL Tab] 0.5 mg PO Q8 PRN #10 tab 01/28/17 Oxybutynin [Ditropan Tab] 5 mg PO DAILY #30 tab 03/11/17 - Allergies Allergies/Adverse Reactions: Allergies Allergy/AdvReac Type Severity Reaction Status Date / Time No Known Allergies Allergy Verified 01/15/17 18:00 Review of Systems ROS Statement: Except As Marked, All Systems Reviewed And Found Negative Neurological: Negative for: Change in Speech, Confusion, Other (agitation) Physical Exam - Reviewed Nursing Documentation Reviewed: Yes Vital Signs Reviewed: Yes - Physical Exam Appears: Positive for: Well, Non-toxic, No Acute Distress Head Exam: Positive for: ATRAUMATIC, NORMAL INSPECTION, NORMOCEPHALIC Skin: Positive for: Warm, Dry Eye Exam: Positive for: EOMI, PERRL Cardiovascular/Chest: Positive for: Regular Rate, Rhythm Respiratory: Positive for: Normal Breath Sounds. Negative for: Rales, Rhonchi, Wheezing Extremity: Positive for: Normal ROM Neurologic/Psych: Positive for: Alert, Oriented (x3), Other (calm, cooperative) . Negative for: Motor/Sensory Deficits - Laboratory Results Result Diagrams: 03/16/17 20:00 03/16/17 20:00 - ECG O2 Sat by Pulse Oximetry: 100 Medical Decision Making Medical Decision Makin Consider conditions such as brain mass, bipolar disorder, dementia, substance abuse. Plan: CT Head Labs reassess crisis reeval Discussed with Dr Miller who recommends neupogen injection in ED and discharge 1700 Pt is alert awake and Ox3. Pt is cleared by Dr Edmonds for discharge. Pt refuses testing and CT head. Pt refuses to understand AMA and discharge instructions. Pt became aggressive. Pt was restrained after face and face contact. 1800 Crisis reeval requested. Pending medical clearance. ![address] Pandya who agrees that there are no contraindications to medically clear the patient for psych admission since is on outpatient chemo with next cycle in 2 weeks. Disposition - Clinical Impression Clinical Impression: Dementia with behavioral disturbance - Patient ED Disposition Is Patient to be Admitted: Transfer of Care Counseled Patient/Family Regarding: Studies Performed, Diagnosis - Disposition Disposition: Transfer of Care Disposition Time: 19:00 Condition: STABLE Patient Signed Over To: Dulce Richard Handoff Comments: pending medical clearance Additional Comments - Additional Comments Additional Comments: Scribe Attestation: Documented by Donnell Koch acting as a scribe for Isabel Chan MD. Provider Scribe Attestation: All medical record entries made by the Scribe were at my direction and personally dictated by me. I have reviewed the chart and agree that the record accurately reflects my personal performance of the history, physical exam, medical decision making, and the department course for this patient. I have also personally directed, reviewed, and agree with the discharge instructions and disposition.
--- NOTE | 2017-03-16 18:57 | CT ---
PROCEDURE: CT HEAD WITHOUT CONTRAST. HISTORY: AMS COMPARISON: None available. TECHNIQUE: Axial computed tomography images were obtained through the head/brain without intravenous contrast. Radiation dose: Total exam DLP = 1063.14 mGy-cm. This CT exam was performed using one or more of the following dose reduction techniques: Automated exposure control, adjustment of the mA and/or kV according to patient size, and/or use of iterative reconstruction technique. FINDINGS: HEMORRHAGE: No intracranial hemorrhage. BRAIN: Diffuse atrophy with prominence of the ventricles and sulci noted. No mass effect or edema. Intracranial atherosclerotic calcifications. Scattered periventricular and subcortical white matter hypodensities, which are nonspecific, but often seen with chronic microvascular ischemic disease. Please note that MRI with diffusion imaging is more sensitive in the detection of acute ischemic event. VENTRICLES: No hydrocephalus. CALVARIUM: Unremarkable. PARANASAL SINUSES: Small opacification/fluid within the left sphenoid sinus. MASTOID AIR CELLS: Unremarkable as visualized. No inflammatory changes. OTHER FINDINGS: None. IMPRESSION: Generalized atrophy. Moderate nonspecific white matter changes. Please note that MRI with diffusion imaging is more sensitive in the detection of acute ischemic event. Small opacification/fluid within the left sphenoid sinus. Correlate clinically for sinusitis.
--- NOTE | 2017-03-16 19:34 | ED PDOC ---
- Laboratory Results Result Diagrams: 03/16/17 20:00 03/16/17 20:00 - ECG O2 Sat by Pulse Oximetry: 100 (RA) Pulse Ox Interpretation: Normal Medical Decision Making Medical Decision Makin:00 Patient transferred over to provider by Dr. Chan. Pending lab work and crisis admission. Initial Plan: * Chest X-Ray * Urinalysis * Urine Culture * Potassium Chloride 20 meq PO * Reevaluation 08:57 Labs are back. Patient will be given Potassium Chloride and is medically cleared. Awaiting chest x-ray, urinalysis, and urine culture. 1855: CT head impression: Generalized atrophy. Moderate nonspecific white matter changes. Please note that MRI with diffusion imaging is more sensitive in the detection of acute ischemic event. Small opacification/fluid within the left sphenoid sinus. Correlate clinically for sinusitis. 2350: Patient is medically cleared. Urine shows no large infection. CXR unchanged compared to prior. slight anemia noted on bloodwork. Dx: dementia with behavioral disturbance and psychotic features as per dr mac needs admission Scribe Attestation: Documented by Donnell Klein, acting as a scribe for Dulce Richard MD. Provider Scribe Attestation: All medical record entries made by the Scribe were at my direction and personally dictated by me. I have reviewed the chart and agree that the record accurately reflects my personal performance of the history, physical exam, medical decision making, and the department course for this patient. I have also personally directed, reviewed, and agree with the discharge instructions and disposition. Disposition - Clinical Impression Clinical Impression: Dementia with behavioral disturbance - POA Present On Arrival: None - Disposition Disposition: Admitted as In-Patient Disposition Time: 22:50 Condition: STABLE
[2017-03-16 20:08] LABS: BASO % 0.7 % (0.0-2.0); EOS # 0.3 K/uL (0.0-0.7); EOS % 5.6 % (0.0-4.0); HEMATOCRIT 30.9 % (34.0-47.0); LYMPH # 1.9 K/uL (1.0-4.3); LYMPH % 30.7 % (20.0-40.0); MEAN CELL VOLUME 77.6 fl (81.0-99.0); MEAN CORPUSCULAR HEMOGLOBIN 24.8 pg (27.0-31.0); MEAN CORPUSCULAR HGB CONC 31.9 g/dL (33.0-37.0); MEAN PLATELET VOLUME 7.3 fl (7.2-11.7); MONO # 0.5 K/uL (0.0-0.8); MONO % 8.5 % (0.0-10.0); NEUT # 3.4 K/uL (1.8-7.0); NEUT % 54.5 % (50.0-75.0); NRBC % 0.1 % (0.0-0.0); RED CELL DISTRIBUTION WIDTH 22.2 % (11.5-14.5); WHITE BLOOD COUNT 6.2 K/uL (4.8-10.8)
[2017-03-16 20:20] LABS: ALCOHOL SERUM < 10 mg/dl (0-10); BLOOD UREA NITROGEN 9 mg/dl (7-17); CALCIUM 8.8 mg/dL (8.4-10.2); CARBON DIOXIDE 24 mmol/L (22-30); CHLORIDE 109 mmol/L (98-107); GFR AFRICAN-AMERICAN > 60; GLUCOSE,RANDOM 165 mg/dL (65-105); POTASSIUM 3.4 MMOL/L (3.6-5.0); SODIUM 142 mmol/l (132-148)
[2017-03-16] MEDS ORDERED: Potassium Chloride 20 mEq ER Tab PO ONE (20:56)
[2017-03-16 21:02] VITALS: O2SAT 100
[2017-03-16 22:38] LABS: RBC URINE 1 /hpf (0-3); URINE BILIRUBIN NEGATIVE (NEGATIVE); URINE BLOOD NEGATIVE (NEGATIVE); URINE COLOR YELLOW (YELLOW); URINE GLUCOSE (UA) NEG (Normal); URINE KETONE NEGATIVE (NEGATIVE); URINE LEUKOCYTE ESTERASE TRACE Leu/uL (Negative); URINE PROTEIN NEGATIVE (NEGATIVE); URINE UROBILINOGEN 0.2-1.0 mg/dL (0.2-1.0); WBC URINE 2 /hpf (0-5)
[2017-03-17] MEDS ORDERED: Magnesium Hydroxide Susp 30 ml UD PO PRN (01:21)
[2017-03-17] MEDS ORDERED: Bismuth Subsalicylate 262 mg/15 ml Sus (240 ml) PO PRN (01:21)
[2017-03-17] MEDS ORDERED: Alum-Mag Hydrox-Simethicone Susp (30 mL) PO PRN (01:21)
[2017-03-17 08:26] LABS: CHOLESTEROL 220 mg/dL (0-199)
[2017-03-17 08:31] LABS: IRON 49 ug/dL (37-170)
[2017-03-17 08:43] LABS: T4 14.9 ug/dl (5.5-11.0)
[2017-03-17 08:57] LABS: THYROID STIMULATING HORMONE 1.98 mIU/ML (0.46-4.68)
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
--- NOTE | 2017-03-17 11:59 | RAD ---
HISTORY: psych COMPARISON: 01/09/2017 FINDINGS: LUNGS: No active pulmonary disease. PLEURA: No significant pleural effusion identified, no pneumothorax apparent. CARDIOVASCULAR: Left subclavian central venous infusion port unchanged. OSSEOUS STRUCTURES: No significant abnormalities. VISUALIZED UPPER ABDOMEN: Normal. OTHER FINDINGS: None. IMPRESSION: No active disease.
--- NOTE | 2017-03-17 19:51 | CP.PCM.PN ---
Subjective - Date & Time of Evaluation Date of Evaluation: 03/17/17 Time of Evaluation: 19:00 - Subjective Subjective: Called by nurse to evaluate patient s/p fall in unit. As per patient she was standing and leaned to the door ,but the door moved and she lost balance and fell to the floor. She states that was able to brake her fall with her hands, denies any trauma to the head, LOC, dizziness, palpitations, pain . She is able to move all 4 extremities physical exam showed no pbvious signs of trauma , no tenderness with palpation BP 168/89 HR 88 Continue monitoring in psych unit No need for any imaging or other work up at this time Objective - Vital Signs/Intake and Output Vital Signs (last 24 hours): Temp Pulse Resp BP Pulse Ox 97.1 F L 86 20 175/86 H 100 03/17/17 15:52 03/17/17 15:52 03/17/17 15:52 03/17/17 15:52 03/17/17 07:31 - Medications Medications: Current Medications Acetaminophen (Tylenol 325mg Tab) 650 mg PO Q4 PRN PRN Reason: Pain, moderate (4-7) Al Hydrox/Mg Hydrox/Simethicone (Maalox Plus 30 Ml) 30 ml PO Q4 PRN PRN Reason: Dyspepsia Amlodipine Besylate (Norvasc) 10 mg PO DAILY [facility] Ascorbic Acid (Vitamin C 500 Mg Tab) 500 mg PO DAILY [facility] Bismuth Subsalicylate (Pepto-Bismol) 524 mg PO Q4 PRN PRN Reason: Diarrhea Ferrous Sulfate (Feosol) 325 mg PO DAILY [facility] Lorazepam (Ativan) 0.5 mg PO HS PRN PRN Reason: Insomnia Stop: 03/31/17 01:22 Lorazepam (Ativan) 0.5 mg PO Q6 PRN PRN Reason: Anixety/Agitation Stop: 03/31/17 01:22 Magnesium Hydroxide (Milk Of Magnesia) 30 ml PO HS PRN PRN Reason: Constipation Metoprolol Tartrate (Lopressor) 50 mg PO Q12 NIKOLAY Oxybutynin Chloride (Ditropan Tab) 5 mg PO BID NIKOLAY Risperidone (Risperdal Tab) 0.5 mg PO HS NIKOLAY
[2017-03-17 23:36] LABS: FOLATE > 20.0 ng/mL
--- NOTE | 2017-03-18 02:55 | CON ---
DATE: 03/17/2017 HISTORY OF PRESENT ILLNESS: This is a 71-year-old -Cymraes female with history of colorectal cancer diagnosed about 2 months ago. Currently on IV chemotherapy every 2 weeks. The patient was a dmitted to psychiatric [facility] and medical consultation was called for medical followup. The patient de nied to have any chest pain or shortness of breath. REVIEW OF SYSTEMS: Other review of systems negative. ALLERGIES: No known allergy. HOME MEDICATIONS: Amlodipine 10 mg daily and Risperdal 0.5 mg every 8 hours, Ditropan 5 mg daily, me toprolol 50 mg every 12 hours, ferrous sulfate 325 mg twice a day, vitamin C 500 mg daily. SOCIAL HISTORY: Positive history for smoking. No ETOH or substance abuse. FAMILY HISTORY: Noncontributory. PAST MEDICAL HISTORY: Colorectal cancer, hypertension, overactive bladder, anemia, multifactorial. PHYSICAL EXAMINATION: GENERAL: The patient is in bed, comfortable, not in any cardiopulmonary distress at the time of this examination. VITAL SIGNS: Blood pressure 175/86, temperature 97.1, respiratory rate 20, and pulse 86. HEENT: Pupils equal, reactive to light. Normal-appearing mucosa of the conjunctivae, oropharyngeal and nasopharyngeal mucosa. NECK: Supple, no JVD, no carotid bruit, no lymph node, no thyromegaly. CHEST AND LUNGS: Bilateral symmetrical expansion, good air exchange, no rales, no rhonchi. CARDIOVASCULAR: PMI not localized. S1, S2. No additional sounds. ABDOMEN: Normoactive bowel sounds, no tenderness, no organomegaly, no masses. EXTREMITIES: No cyanosis, no clubbing, no edema. CENTRAL NERVOUS SYSTEM: Alert, awake, oriented x 2. No neurological deficits could be appreciated. ASSESSMENT: 1. Colorectal cancer, on chemotherapy every 2 weeks. Last chemotherapy was 6 days ago. 2. Hypertension. 3. Anemia, multifactorial. 4. Overactive bladder. PLAN: We will resume patient's home medications and check electrolytes and supplement electrolytes a s needed. Will follow up with you. Thank you for the consult. [facility] Mum[facility] cc: [phone] TT: 03/18/2017 02:55:11 Confirmation # [id number] Dictation # [id number] mn
[2017-03-18 08:33] LABS: BLOOD UREA NITROGEN 8 mg/dl (7-17); CALCIUM 9.1 mg/dL (8.4-10.2); CARBON DIOXIDE 26 mmol/L (22-30); CHLORIDE 106 mmol/L (98-107); GFR AFRICAN-AMERICAN > 60; GLUCOSE,RANDOM 159 mg/dL (65-105); POTASSIUM 3.6 MMOL/L (3.6-5.0); SODIUM 142 mmol/l (132-148)
--- NOTE | 2017-03-18 11:05 | PCM.PYCHPN ---
Psychiatric Progress Note - Psychiatric Progress Note Patient seen today, length of contact: Patient evaluated, case discussed with team, chart reviewed, 35 min Patient Chief Complaint: "I don't want to be in the hospital." Problems Identified/Issues Discussed: Patient reports that she does not believe she belongs on a psychiatric unit and would like to be discharged. She does not believe she has any acute psychiatric issues. She is not agreeable to increasing the dosage of Risperdal. She is not agreeable to letting staff speak openly with her daughter. She also states that she is not agreeable to outpatient follow-up. Medication Change: No Medical Record Reviewed: Yes Mental Status Examination - Cognitive Function Orientation: Person, Place, Situation, Time Memory: Intact Attention: WNL Concentration: WNL Association: WNL Fund of Knowledge: WNL Decription of patient's judgement and insights: Poor insight, judgment limited by insight - Mood Mood: Neutral - Affect Affect: Constricted - Speech Speech: Appropriate - Formal Thought Process Formal Thought Process: Paranoia Psychotic Thoughts and Behaviors: Patient denies overt symptoms of hallucinations and paranoia, but she seems distrustful and possibly paranoid of others. - Suicidal Ideation Suicidal Ideation: No - Homicidal Ideation Homicidal Ideation: No Goal/Treatment Plan - Goal/Treatment Plan Need for Continued Stay: Remain at risks for inpatient hospitalization Progress Toward Problem(s) and Goals/Treatment Plan: 71 yo female w/ unclear psychiatric history, BIB EMS due to aggression, which the patient now denies, is evasive and guarded on interview, not agreeable to increasing the Risperdal and does not believe she has any acute psychiatric issues, not agreeable to follow-up outpatient treatment and requesting discharge. As she is not an acute danger to herself or others and is otherwise capable of taking care of herself, she will likely be discharged tomorrow. -Will continue to discuss increasing the dosage of Risperdal w/ the patient. She is not agreeable at this time -Individual and group therapy -Likely discharge tommorow Estimated Date of D/C: 03/19/17 - Smoking Cessation Smoking Cessation Initiated: No Reason for not providing: Not indicated
[2017-03-18 16:17] VITALS: RESP 19
[2017-03-19 05:49] VITALS: PULSE 68; TEMP 97.9
[2017-03-19 08:57] VITALS: BP 149/52
--- NOTE | 2017-03-19 09:22 | PN ---
DATE: 03/18/2017 She . . 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 OBJECTIVE: VITAL SIGNS: Blood pressure , temperature HEENT: Pupils to light. EOMI. Conjunctivae CHEST AND LUNGS: . CARDIOVASCULAR: . EXTREMITIES: All her, she moves all negative. [facility] Bryan Pandya MD cc: [phone] TT: 03/18/2017 20:53:14 Confirmation # [id number] Dictation # [id number]
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
== END 2017-03-19 13:30 | disposition left against medical advice (07) | DRG 884 ==
LOC: H.ER 12:31 → H.EROBSV 17:46 → OBSVTOIN 23:40 → H.ERHOLD 23:40 → H.STEP 03-17 01:08
PROVIDERS: ADMIT Internal Medicine Hematology & Oncology; ATTEND Psychiatry & Neurology Psychiatry
PROC: GZ51ZZZ Individual Psychotherapy, Behavioral (ICD-10-PCS; 2017-03-16)
PROC: GZHZZZZ Group Psychotherapy (ICD-10-PCS; principal; 2017-03-17)
DX: F03.91 Unspecified dementia, unspecified severity, with behavioral disturbance (principal); C19 Malignant neoplasm of rectosigmoid junction; D64.9 Anemia, unspecified; F20.0 Paranoid schizophrenia; I10 Essential (primary) hypertension; N32.81 Overactive bladder; Z92.21 Personal history of antineoplastic chemotherapy; Z87.891 Personal history of nicotine dependence

== ENCOUNTER 2017-03-23 12:16 | Inpatient (IN) | payer MEDICARE ==
[2017-03-23 12:19] VITALS: BMI 22.9
[2017-03-23] MEDS: Sodium Chloride 0.9% 500 ML IV SCH ×2 (13:00→23:55)
[2017-03-23 13:23] LABS: BASO # 0.1 K/uL (0.0-0.2); BASO % 1.5 % (0.0-2.0); EOS # 0.1 K/uL (0.0-0.7); EOS % 2.2 % (0.0-4.0); LYMPH # 1.7 K/uL (1.0-4.3); LYMPH % 35.6 % (20.0-40.0); MEAN CELL VOLUME 78.2 fl (81.0-99.0); MEAN CORPUSCULAR HEMOGLOBIN 25.4 pg (27.0-31.0); MEAN CORPUSCULAR HGB CONC 32.5 g/dL (33.0-37.0); MEAN PLATELET VOLUME 7.5 fl (7.2-11.7); MONO # 1.1 K/uL (0.0-0.8); MONO % 21.9 % (0.0-10.0); NEUT # 1.9 K/uL (1.8-7.0); NEUT % 38.8 % (50.0-75.0); NRBC % 0.1 % (0.0-0.0); PLATELET COUNT 227 K/uL (130-400); WHITE BLOOD COUNT 4.9 K/uL (4.8-10.8)
[2017-03-23 13:35] LABS: ALKALINE PHOSPHATASE 82 U/L (38-126); ALT/SGPT 24 U/L (9-52); AST/SGOT 27 U/L (14-36); BILIRUBIN,TOTAL 0.2 mg/dl (0.2-1.3); BLOOD UREA NITROGEN 9 mg/dl (7-17); CARBON DIOXIDE 26 mmol/L (22-30); CHLORIDE 106 mmol/L (98-107); GFR AFRICAN-AMERICAN > 60; GLUCOSE,RANDOM 112 mg/dL (65-105); POTASSIUM 3.6 MMOL/L (3.6-5.0); SODIUM 141 mmol/l (132-148); TOTAL PROTEIN 7.2 G/DL (6.3-8.2)
[2017-03-23] MEDS ORDERED: Dexamethasone 10 MG in Sodium Chloride 0.9% 50 ML IVPB SCH (13:45)
[2017-03-23] MEDS ORDERED: Lidocaine/Prilocaine CREAM 5GM TP SCH (13:45)
[2017-03-23] MEDS ORDERED: Fosaprepitant 150 MG in Sodium Chloride 0.9% 250 ML IVPB SCH (13:45)
[2017-03-23] MEDS ORDERED: WATER IVPB SCH (14:00)
[2017-03-23] MEDS ORDERED: LEUCOVORIN CALCIUM IVPB SCH (14:00)
[2017-03-23] MEDS ORDERED: DEXTROSE 5% IVPB SCH (14:00)
[2017-03-23] MEDS ORDERED: WATER IV SCH (14:15)
[2017-03-23] MEDS ORDERED: OXALIPLATIN IV SCH (14:15)
[2017-03-23] MEDS ORDERED: DEXTROSE 5% IV SCH (14:15)
[2017-03-23] MEDS ORDERED: FLUOROURACIL IV SCH ×2 (14:15)
[2017-03-23] MEDS ORDERED: BEVACIZUMAB IV SCH (14:15)
[2017-03-23] MEDS ORDERED: SODIUM CHLORIDE 0.9% IV SCH ×3 (14:15)
[2017-03-23 14:35] LABS: NEUTROPHIL 40 % (42-75); REACTIVE LYMPHOCYTES 2 % (0-0); TOTAL CELLS COUNTED 100
[2017-03-24 00:28] VITALS: O2SAT 100
[2017-03-24] MEDS: Sodium Chloride 0.9% 500 ML IV SCH ×2 (07:58→22:19)
[2017-03-24] MEDS: Enoxaparin 40 mg Syringe SC SCH ×2 (08:36→08:41)
--- NOTE | 2017-03-24 09:51 | CP.PCM.CON ---
History of Present Illness - History of Present Illness History of Present Illness: This is a 71 yrs old female who was diagnosed to have a colo rectal cancer 4 months ago. She had a inoperable cancer so neoadjuvant chemotherapy was started Pt had refused RT, She has been doing well with the chemo., no longer has any rectal bleeding She has a schizophrenic disorder, and can sometimes be very unreasonable She has no h/o smoking or alcohol abuse Past Patient History - Past Medical History & Family History Past Medical History?: Yes - Past Social History Smoking Status: Former Smoker - CARDIAC Hx Cardiac Disorders: No Hx Hypertension: Yes - PULMONARY Hx Respiratory Disorders: No Hx Tuberculosis: No - NEUROLOGICAL HX Cerebrovascular Accident: No Hx Seizures: No - HEENT Hx HEENT Problems: No - RENAL Hx Chronic Kidney Disease: No - ENDOCRINE/METABOLIC Hx Endocrine Disorders: No - HEMATOLOGICAL/ONCOLOGICAL Hx Anemia: Yes Hx Cancer: Yes Hx Chemotherapy: Yes Hx Human Immunodeficiency Virus (HIV): No - INTEGUMENTARY Hx Dermatological Problems: No - MUSCULOSKELETAL/RHEUMATOLOGICAL Hx Arthritis: Yes Hx Falls: No Other/Comment: Prior hx of Back Sx - GASTROINTESTINAL Hx Colitis: No Hx Diverticulitis: Yes - GENITOURINARY/GYNECOLOGICAL Hx Sexually Transmitted Disorders: No - PSYCHIATRIC Hx Bipolar Disorder: Yes Hx Schizophrenia: Yes Hx Substance Use: No - SURGICAL HISTORY Hx Cholecystectomy: Yes Other/Comment: Back sX - ANESTHESIA Hx Anesthesia: Yes Hx Anesthesia Reactions: No Meds Allergies/Adverse Reactions: Allergies Allergy/AdvReac Type Severity Reaction Status Date / Time No Known Allergies Allergy Verified 03/23/17 12:19 - Medications Medications: Current Medications Amlodipine Besylate (Norvasc) 10 mg PO DAILY [facility] Last Admin: 03/24/17 08:49 Dose: 10 mg Ascorbic Acid (Vitamin C 500 Mg Tab) 500 mg PO DAILY [facility] Last Admin: 03/24/17 08:37 Dose: 500 mg Enoxaparin Sodium (Lovenox) 40 mg SC DAILY [facility] PRN Reason: Protocol Last Admin: 03/24/17 08:41 Dose: Not Given Ferrous Sulfate (Feosol) 325 mg PO BID [facility] Last Admin: 03/24/17 08:36 Dose: 325 mg Sodium Chloride (Sodium Chloride 0.9%) 500 mls @ 90 mls/hr IV .Q5H34M [facility] Last Admin: 03/24/17 07:58 Dose: Not Given Fluorouracil 4,056 mg/ Sodium (Chloride) 1,081.12 mls @ 24.571 mls/hr IV ONCE [facility] PRN Reason: As Directed Stop: 03/25/17 14:16 Last Admin: 03/23/17 19:03 Dose: 24.571 mls/hr Metoprolol Tartrate (Lopressor) 50 mg PO Q12 [facility] Last Admin: 03/23/17 22:10 Dose: 50 mg Oxybutynin Chloride (Ditropan Tab) 5 mg PO DAILY [facility] Last Admin: 03/24/17 08:36 Dose: 5 mg Risperidone (Risperdal Tab) 0.5 mg PO Q8 PRN PRN Reason: Agitation Last Admin: 03/23/17 17:09 Dose: 0.5 mg Physical Exam - Additional Findings Additional findings: Physical exam; Alert, wll oriented, in no acute distress neck supple, no adenopathy Chest; Clear, no rales Heart; TRSR, no murmur Abd; Soft, no mass, no h/s megaly Results - Vital Signs Recent Vital Signs: Last Vital Signs Temp 97.5 F L 03/24/17 08:41 Pulse 62 03/24/17 08:49 Resp 18 03/24/17 08:41 BP 155/78 H 03/24/17 08:49 Pulse Ox 100 03/24/17 08:41 - Labs Result Diagrams: 03/23/17 13:11 03/23/17 13:11 Labs: Laboratory Results - last 24 hr 03/23/17 03/23/17 13:11 13:11 WBC 4.9 RBC 3.96 Hgb 10.1 L Hct 31.0 L MCV 78.2 L MCH 25.4 L MCHC 32.5 L RDW 23.0 H Plt Count 227 MPV 7.5 Neut % (Auto) 38.8 L Lymph % (Auto) 35.6 Franklin % (Auto) 21.9 H Eos % (Auto) 2.2 Baso % (Auto) 1.5 Neut # 1.9 Lymph # 1.7 Franklin # 1.1 H Eos # 0.1 Baso # 0.1 Neutrophils % (Manual) 40 L Band Neutrophils % 2 Lymphocytes % (Manual) 37 Reactive Lymphs % 2 H Monocytes % (Manual) 19 H Platelet Estimate Normal Hypochromasia (manual) Slight Poikilocytosis (manual Slight Anisocytosis (manual) Marked Microcytosis (manual) Slight Tear Drop Cells Slight Ovalocytes Slight Schistocytes Slight Sodium 141 Potassium 3.6 Chloride 106 Carbon Dioxide 26 Anion Gap 12 BUN 9 Creatinine 0.7 Est GFR ( Amer) > 60 Est GFR (Non-Af Amer) > 60 Random Glucose 112 H Calcium 9.0 Total Bilirubin 0.2 AST 27 ALT 24 Alkaline Phosphatase 82 Total Protein 7.2 Albumin 3.6 Globulin 3.5 Albumin/Globulin Ratio 1.0 Assessment & Plan - Assessment and Plan (Free Text) Assessment: impression'; Colorectal cancer Plan: Plan; Will give her chemotherapy with Oxaliplatin, Leucovorin, Avastin, and fluorouracil - Date & Time Date: 03/24/17 Time: 11:30
--- NOTE | 2017-03-25 02:35 | HP ---
HISTORY OF PRESENT ILLNESS: This is a 71-year-old -[place] female with history of multiple medical problems including colorectal cancer, currently on chemotherapy, last 2 months, was admitted to the hospital for another course of intravenous chemotherapy. The patient denied having shortness of breath or chest pain. The patient denied to have any lower gastrointestinal bleeding or incontinence, symptoms that she used to complain of before. REVIEW OF SYSTEMS: Other review of systems is negative. ALLERGIES: No known allergy. HOME MEDICATIONS: Risperdal 0.5 mg, oxybutynin 5 mg daily, metoprolol 50 mg q. 12 hours, amlodipine 10 mg daily. SOCIAL HISTORY: Ex-smoker. No ETOH or substance abuse. FAMILY HISTORY: Noncontributory. PAST MEDICAL HISTORY: Colorectal cancer, hypertension, overactive bladder. PHYSICAL EXAMINATION: GENERAL: The patient is comfortable, not in any apparent distress. VITAL SIGNS: Blood pressure 155/78, temperature 97.5, respiratory rate 18, and pulse is 62. HEENT: Pupils equal, reactive to light. Normal-appearing mucosa of the conjunctivae, oropharyngeal and nasal membrane mucosa. NECK: Supple, no JVD, no carotid bruit, no lymph node, no thyromegaly. CHEST AND LUNGS: Bilateral symmetrical expansion, good air exchange, no rales, no rhonchi. CARDIOVASCULAR: PMI not localized. S1, S2. No additional sounds. ABDOMEN: Normoactive bowel sounds, no tenderness, no organomegaly, no masses. EXTREMITIES: No cyanosis, no clubbing, no edema. CENTRAL NERVOUS SYSTEM: Alert, awake, oriented x 2. No neurological deficits could be appreciated. ASSESSMENT: Colorectal cancer, anemia of chronic disease, overactive bladder, hypertension. PLAN: Hematology/oncology consultation and follow recommendations. Continue chemotherapy as ordered and resume the patient's home medications. Jesus Pandya MD cc: [phone] TT: 03/25/2017 02:34:28 an MTDD
[2017-03-25] MEDS: Sodium Chloride 0.9% 500 ML IV SCH (04:40)
--- NOTE | 2017-03-25 09:13 | CP.PCM.PN ---
Subjective - Date & Time of Evaluation Date of Evaluation: 03/25/17 Time of Evaluation: 09:10 - Subjective Subjective: Pt is on the last day of fluorouracil infusionNo side effects seen. She will be discharged today , to return on Thursday for the granix and will give her a prescription for the CT scan to see if she can be a candidate for surgury now. Objective - Vital Signs/Intake and Output Vital Signs (last 24 hours): Temp Pulse Resp BP Pulse Ox 97.7 F 57 L 16 159/74 H 100 03/25/17 07:48 03/25/17 07:48 03/25/17 07:48 03/25/17 07:48 03/25/17 07:48 - Medications Medications: Current Medications Amlodipine Besylate (Norvasc) 10 mg PO DAILY [facility] Last Admin: 03/24/17 08:49 Dose: 10 mg Ascorbic Acid (Vitamin C 500 Mg Tab) 500 mg PO DAILY [facility] Last Admin: 03/24/17 08:37 Dose: 500 mg Enoxaparin Sodium (Lovenox) 40 mg SC DAILY [facility] PRN Reason: Protocol Last Admin: 03/24/17 08:41 Dose: Not Given Ferrous Sulfate (Feosol) 325 mg PO BID [facility] Last Admin: 03/24/17 21:46 Dose: 325 mg Sodium Chloride (Sodium Chloride 0.9%) 500 mls @ 90 mls/hr IV .Q5H34M [facility] Last Admin: 03/25/17 04:40 Dose: Not Given Fluorouracil 4,056 mg/ Sodium (Chloride) 1,081.12 mls @ 24.571 mls/hr IV ONCE [facility] PRN Reason: As Directed Stop: 03/25/17 14:16 Last Admin: 03/23/17 19:03 Dose: 24.571 mls/hr Metoprolol Tartrate (Lopressor) 50 mg PO Q12 [facility] Last Admin: 03/24/17 21:47 Dose: 50 mg Oxybutynin Chloride (Ditropan Tab) 5 mg PO DAILY [facility] Last Admin: 03/24/17 08:36 Dose: 5 mg Risperidone (Risperdal Tab) 0.5 mg PO Q8 PRN PRN Reason: Agitation Last Admin: 03/24/17 21:48 Dose: 0.5 mg - Labs Labs: 03/23/17 13:11 03/23/17 13:11
[2017-03-25] MEDS: Enoxaparin 40 mg Syringe SC SCH (09:21)
[2017-03-25 16:29] VITALS: BP 164/76; PULSE 62; RESP 20; TEMP 98.4
--- NOTE | 2017-03-26 03:02 | DS ---
REASON FOR ADMISSION: This is a 71-year-old -Nigerien female with history of colorectal cancer, was admitted for a course of IV chemotherapy. COURSE OF HOSPITALIZATION: The patient was admitted to medical floor and she had an oncology consult done by Dr. Jarett Miller. The patient denied to have any abdominal pain and she did well , tolerating the chemotherapy dose and she was discharged back home. FINAL DIAGNOSES: Colorectal cancer, hypertension, overactive bladder, anemia of chronic inflammation. [facility] Bryan Pandya MD cc: [phone] TT: 03/26/2017 03:01:45 galen MATHIS
== END 2017-03-25 16:54 | disposition home or self-care (01) | DRG 847 ==
LOC: H.MEDSURG1 12:23
PROVIDERS: ADMIT Internal Medicine; ATTEND Internal Medicine
DX: Z51.11 Encounter for antineoplastic chemotherapy (principal); C19 Malignant neoplasm of rectosigmoid junction; D63.8 Anemia in other chronic diseases classified elsewhere; F20.9 Schizophrenia, unspecified; I10 Essential (primary) hypertension; N32.81 Overactive bladder; Z87.891 Personal history of nicotine dependence; F31.9 Bipolar disorder, unspecified

== ENCOUNTER 2017-10-15 19:30 | Inpatient (IN) | payer MEDICARE ==
[2017-10-15 19:30] VITALS: BMI 22.9
--- NOTE | 2017-10-15 21:47 | CT ---
EXAM: CT Head Without Intravenous Contrast CLINICAL HISTORY: 72 years old, female; Signs and symptoms; Altered mental status/memory loss; Additional info: AMS TECHNIQUE: Axial computed tomography images of the head/brain without intravenous contrast. All CT scans at this facility use one or more dose reduction techniques, viz.: automated exposure control; ma/kV adjustment per patient size (including targeted exams where dose is matched to indication; i.e. head); or iterative reconstruction technique. Coronal and sagittal reformatted images were created and reviewed. COMPARISON: No relevant prior studies available. FINDINGS: Brain: [id number] atrophy. No intracranial hemorrhage. No mass. Minimal encephalomalacia within RIGHT frontal region. Several scattered foci of decreased attenuation within periventricular/subcortical white matter. No definite edema. Ventricles: No hydrocephalus. Bones/joints: No acute fracture. Soft tissues: Unremarkable. Vasculature: Minimal atherosclerotic disease of intracranial arteries. Sinuses: Moderate mucosal thickening/fluid of LEFT sphenoid sinus. Mastoid air cells: No mastoid effusion. Orbits: Unremarkable as visualized. IMPRESSION: 1. Nonspecific white matter changes. Acute infarction may be CT occult within first 24 hours. If a focal deficit persists, consider followup CT or MRI for further evaluation. 2. Incidental/non-acute findings are described above.
--- NOTE | 2017-10-15 21:58 | CT ---
EXAM: CT Lumbar Spine Without Intravenous Contrast CLINICAL HISTORY: 72 years old, female; Pain; Low back pain; Additional info: Low back pain, HX colon ca TECHNIQUE: Axial computed tomography images of the lumbar spine without intravenous contrast. All CT scans at this facility use one or more dose reduction techniques, viz.: automated exposure control; ma/kV adjustment per patient size (including targeted exams where dose is matched to indication; i.e. head); or iterative reconstruction technique. Coronal and sagittal reformatted images were created and reviewed. COMPARISON: No relevant prior studies available. FINDINGS: Vertebrae: Mild compression deformity superior endplate L3 vertebral body with faint condensation of bone. Facet osteoarthrosis. Laminectomy at L4 and L5 levels. Mild levoscoliosis. Discs/spinal canal/neural foramina: Early degenerative disc disease at L2-L3, L3-L4 levels. Moderate degenerative disc disease at L4-L5 level. Vacuum disc phenomenon at L5-S1 level. Mild central canal stenosis at L2-L3 level. Severe central canal stenosis at L3-L4 level. Multilevel neuroforaminal narrowing. Soft tissues: Unremarkable. Vasculature: Atherosclerotic disease of visualized arteries. IVC filter. Lymph nodes: Several enlarged lymph nodes within retroperitoneum, pelvis. Stomach and bowel: Circumferential thickening of rectosigmoid colon, incompletely imaged. Moderate stranding within adjacent fat. Postsurgical changes of bowel. IMPRESSION: 1. L3 compression fracture, likely subacute. 2. Colonic wall thickening compatible with history of malignancy. 3. Incidental/non-acute findings are described above.
[2017-10-15 22:19] LABS: BASO % 0.4 % (0.0-2.0); HEMATOCRIT 31.2 % (34.0-47.0); LYMPH # 0.8 K/uL (1.0-4.3); LYMPH % 11.3 % (20.0-40.0); MEAN CELL VOLUME 77.4 fl (81.0-99.0); MEAN CORPUSCULAR HEMOGLOBIN 24.5 pg (27.0-31.0); MEAN CORPUSCULAR HGB CONC 31.7 g/dL (33.0-37.0); MEAN PLATELET VOLUME 8.5 fl (7.2-11.7); MONO # 0.1 K/uL (0.0-0.8); NEUT # 6.3 K/uL (1.8-7.0); NEUT % 86.3 % (50.0-75.0); RED CELL DISTRIBUTION WIDTH 18.4 % (11.5-14.5); WHITE BLOOD COUNT 7.3 K/uL (4.8-10.8)
[2017-10-15 22:25] LABS: PARTIAL THROMBOPLASTIN TIME 27.1 Seconds (25.6-37.1)
--- NOTE | 2017-10-15 22:38 | ED PDOC ---
HPI: Back Time Seen by Provider: 10/15/17 20:26 Chief Complaint (Nursing): Back Pain Chief Complaint (Provider): Low back pain for a few days, no meds at home History Per: Patient History/Exam Limitations: no limitations Onset/Duration Of Symptoms: Days Current Symptoms Are (Timing): Still Present Full Body Front + Back: 1 - Pain Severity: Moderate Pain Scale Rating Of: 5 Previous Symptoms: None Additional Complaint(s): PT with history of Colon CA, and HTN presents with low back pain. PT did not take any medications at home for pain. Pt denies but states her doctor gave her an RX for new medications but she does not know what it is for and did not fill it. Pt denies fever. Pt appears drowsy during exam and does not answer all questions the first time. Past Medical History Reviewed: Historical Data, Nursing Documentation, Vital Signs Vital Signs: Last Vital Signs Temp 99.0 F 10/15/17 19:42 Pulse 89 10/15/17 20:59 Resp 18 10/15/17 20:59 BP 157/88 H 10/15/17 20:59 Pulse Ox 97 10/15/17 20:59 - Medical History PMH: Anemia, Arthritis, Bipolar Disorder, Depression, Diverticulitis, HTN, Malignancy (colon ca, ), Schizophrenia Denies: Diabetes, Hepatitis, HIV, Chronic Kidney Disease, Seizures, Sexually Transmitted Disease - Surgical History Surgical History: Cholecystectomy - Family History Family History: States: Unknown Family Hx - Living Arrangements Living Arrangements: With Family - Social History Current smoker - smoking cessation education provided: No Alcohol: None Drugs: Denies - Home Medications Home Medications: Ambulatory Orders Medication Instructions Recorded Ferrous Sulfate [Feosol] 325 mg PO BID #60 tab 01/15/17 Ascorbic Acid [Vitamin C 500 mg 500 mg PO DAILY #30 tab 01/28/17 Tab] Metoprolol Tartrate [Lopressor] 50 mg PO Q12 #60 tab 01/28/17 amLODIPine [Norvasc] 10 mg PO DAILY #30 tab 01/28/17 risperiDONE [RisperDAL Tab] 0.5 mg PO Q8 PRN #10 tab 01/28/17 Oxybutynin [Ditropan Tab] 5 mg PO DAILY #30 tab 03/11/17 - Allergies Allergies/Adverse Reactions: Allergies Allergy/AdvReac Type Severity Reaction Status Date / Time No Known Allergies Allergy Verified 10/15/17 19:41 Review of Systems ROS Statement: Except As Marked, All Systems Reviewed And Found Negative Constitutional: Negative for: Fever, Chills ENT: Negative for: Ear Pain, Ear Discharge Cardiovascular: Negative for: Chest Pain Respiratory: Negative for: Cough, Shortness of Breath Musculoskeletal: Positive for: Back Pain Skin: Negative for: Rash, Lesions Neurological: Positive for: Other. Negative for: Weakness, Numbness, Headache Physical Exam - Reviewed Nursing Documentation Reviewed: Yes Vital Signs Reviewed: Yes - Physical Exam Appears: Positive for: Well, Non-toxic, No Acute Distress Head Exam: Positive for: ATRAUMATIC, NORMAL INSPECTION, NORMOCEPHALIC Skin: Positive for: Normal Color, Warm, DRY Eye Exam: Positive for: EOMI, Normal appearance, PERRL ENT: Positive for: Normal ENT Inspection Neck: Positive for: Normal, Painless ROM Cardiovascular/Chest: Positive for: Regular Rate, Rhythm Respiratory: Positive for: Normal Breath Sounds. Negative for: Accessory Muscle Use Gastrointestinal/Abdominal: Positive for: Normal Exam, Bowel Sounds, Soft Back: Positive for: Normal Inspection, Vertebral Tenderness (L-spine) Extremity: Positive for: Normal ROM Neurologic/Psych: Positive for: Alert, Oriented - Laboratory Results Result Diagrams: 10/15/17 22:02 10/15/17 22:02 - ECG O2 Sat by Pulse Oximetry: 97 Medical Decision Making Medical Decision Makin yo female with AMS and pyelonephritis to be admitted for IV antibiotics. Discussed with Dr. Pandya. Disposition - Clinical Impression Clinical Impression: Pyelonephritis, Lumbar compression fracture - Patient ED Disposition Is Patient to be Admitted: Yes - Disposition Disposition Time: 04:23 Condition: STABLE Forms: [facility] (Bulgarian)
[2017-10-15 22:47] LABS: BILIRUBIN,TOTAL 0.3 mg/dl (0.2-1.3); CALCIUM 9.1 mg/dL (8.4-10.2); POTASSIUM 3.6 MMOL/L (3.6-5.0); TOTAL PROTEIN 7.6 G/DL (6.3-8.2)
[2017-10-15 22:58] LABS: TROPONIN I 0.022 ng/mL (0.00-0.120)
[2017-10-16 04:02] LABS: RBC URINE 4 /hpf (0-3); URINE BACTERIA FEW (<OCC); URINE BILIRUBIN NEGATIVE (NEGATIVE); URINE BLOOD SMALL (NEGATIVE); URINE COLOR YELLOW (YELLOW); URINE GLUCOSE (UA) NEG (Normal); URINE KETONE NEGATIVE (NEGATIVE); URINE LEUKOCYTE ESTERASE LARGE Leu/uL (Negative); URINE PROTEIN 30 mg/dL (NEGATIVE); URINE UROBILINOGEN 0.2-1.0 mg/dL (0.2-1.0); WBC CLUMPS OCC /hpf; WBC URINE 632 /hpf (0-5)
[2017-10-16] MEDS ORDERED: cefTRIAXone 2 GM in Sodium Chloride 0.9% 100 ML IVPB STA (04:11)
[2017-10-16] MEDS ORDERED: Sodium Chloride 0.9% 1,000 ML IV STA (04:12)
[2017-10-16] MEDS ORDERED: cefTRIAXone IV 1 gm in Dextros 100 ML IVPB ONE (04:14)
[2017-10-16] MEDS ORDERED: Pneumococcal 23-Valent Vaccine IM ONE (06:33)
--- NOTE | 2017-10-16 08:46 | CARD ---
APPROVED REPORT EKG Measurement Heart [id number] <Conclusion> Normal sinus rhythm with sinus arrhythmia Possible Left atrial enlargement Left ventricular hypertrophy Prolonged QT Abnormal ECG
[2017-10-16] MEDS: Sodium Chloride 0.9% 1,000 ML IV SCH ×3 (08:52→19:02)
[2017-10-16] MEDS: Insulin Lispro (humaLOG) 100 Units/ml Inj SC SCH ×4 (08:54→21:57)
--- NOTE | 2017-10-16 09:04 | RAD ---
HISTORY: AMS, back pain, HX of colon CA COMPARISON: Frontal chest 03/16/2017. FINDINGS: LUNGS: Left-sided MediPort catheter possibly replaced but unchanged in termination at the distal superior vena cava. PLEURA: No significant pleural effusion identified, no pneumothorax apparent. CARDIOVASCULAR: Borderline cardiomegaly appears stable. No pulmonary vascular derangement identified. OSSEOUS STRUCTURES: No significant abnormalities. VISUALIZED UPPER ABDOMEN: Normal. OTHER FINDINGS: None. IMPRESSION: Possible replacement of left-sided MediPort catheter. No interval pneumothorax. No infiltrate or pleural effusion bilaterally. Borderline cardiomegaly stable.
[2017-10-16] MEDS: Calcitonin 200 Int Units/Inh Nasal Spray (3.7 ml) NAS SCH (10:14)
[2017-10-16] MEDS ORDERED: Iohexol 240 (50 ml) PO ONE (11:25)
--- NOTE | 2017-10-16 12:55 | US ---
PROCEDURE: Ultrasound of the Kidneys HISTORY: uti, r/o pyelo COMPARISON: Comparison made with prior CT scan chest, abdomen and pelvis dated 04/27/[address] scan lumbar spine 10/15/2017 the latter of which partially image the kidneys. TECHNIQUE: Sonogram of the kidneys. FINDINGS: RIGHT KIDNEY: Right kidney measures approximately 9.8 x 5.8 x 4.9 cm Normal in size, contour and echogenicity. No stone, solid mass lesion or hydronephrosis visualized. Re- demonstrated is a any exophytic cyst arising from the upper pole right kidney that measures approximately 4.5 x 2.8 x 2.8 cm. Please refer to prior CT scan abdomen pelvis further evaluation. LEFT KIDNEY: Left kidney measures approximately 11.0 x 5.2 x 5.2 cm Normal in size, contour and echogenicity. No stone, solid mass lesion or hydronephrosis visualized. OTHER FINDINGS: None. IMPRESSION: Exophytic cyst upper pole right kidney. No evidence of shadowing calculi hydronephrosis.
--- NOTE | 2017-10-16 15:18 | CP.PCM.PN ---
Subjective - Date & Time of Evaluation Date of Evaluation: 10/16/17 Time of Evaluation: 07:00 - Subjective Subjective: GENERAL SURGERY CONSULT FOR DR. 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 Patient is well known to the surgical service. Patient refuses to answer most questions and refused physical exam. Most of history is obtained from EMR and records from [facility]. She presented to the ED yesterday with low back pain that had been present for a few days. A lumbar CT showed L3 compression fracture, likely subacute. Per the nurse, the patient has not had any output from the colostomy since her arrival to the floor early this morning. Patient states that she last had output from the colostomy yesterday but is unable to specify when or to what amount. Patient refused to answer any further questioning including flatus, vomiting, nausea, pain, etc. CT Abd/Pelvis is pending. Records from [facility]: Patient was admitted on 07/22 to [facility]. She had Hgb [address] was done which showed possible perforated colon mass with mets to liver and pelvis. Patient initially refused transfusion and surgery and was seen by psychiatry as well. On 07/24, she had an exploratory laparotomy by Dr. Romo which confirmed perforation as well as peritonitis. The tumor was adherent to and invading the fallopian tube and ovary as well as small bowel. A low anterior resection, enbloc small bowel resection, end colostomy formation, right salpingoophorectomy was done. Pathology showed a low grade adenocarcinoma rectosigmoid tumor. LN was positive for metastatic adenocarcinoma. PMHx: HTN, rectosigmoid adenocarcinoma w/ mets on neoadjuvant chemo, schizophrenia - paranoid type, bipolar Surgeries: cholecystectomy, Left internal jugular portacath insertion 01/09/17, Ex lap, low anterior resection, enbloc small bowel resection and end colostomy at [facility] by Dr. Romo Allergies: none Social history: possibly homeless Objective - Vital Signs/Intake and Output Vital Signs (last 24 hours): Temp Pulse Resp BP Pulse Ox 97.5 F L 74 20 144/72 99 10/16/17 08:33 10/16/17 08:49 10/16/17 08:33 10/16/17 08:49 10/16/17 08:33 - Medications Medications: Current Medications Acetaminophen (Tylenol 325mg Tab) 650 mg PO Q6 PRN PRN Reason: Pain, moderate (4-7) Amlodipine Besylate (Norvasc) 10 mg PO DAILY [facility] Last Admin: 10/16/17 08:53 Dose: 10 mg Aripiprazole (Abilify) 5 mg PO DAILY [facility] Last Admin: 10/16/17 08:49 Dose: 5 mg Calcitonin [place] (Miacalcin) 200 iu MARIYA DAILY [facility] Last Admin: 10/16/17 10:14 Dose: Not Given Heparin Sodium (Porcine) (Heparin) 5,000 units IVP Q12 [facility] PRN Reason: Protocol Last Admin: 10/16/17 08:53 Dose: Not Given Ceftriaxone Sodium 1 gm/ (Sodium Chloride) 100 mls @ 100 mls/hr IVPB DAILY [facility] PRN Reason: Protocol Last Admin: 10/16/17 09:32 Dose: Not Given Sodium Chloride (Sodium Chloride 0.9%) 1,000 mls @ 80 mls/hr IV .[id number] [facility] Stop: 10/17/17 06:40 Last Admin: 10/16/17 08:52 Dose: 80 mls/hr Insulin Human Lispro (Humalog) 0 units SC QID [facility] PRN Reason: Protocol Last Admin: 10/16/17 13:50 Dose: Not Given Lisinopril (Zestril) 10 mg PO DAILY [facility] Last Admin: 10/16/17 08:49 Dose: 10 mg Metoprolol Tartrate (Lopressor) 50 mg PO BID [facility] Last Admin: 10/16/17 08:49 Dose: 50 mg Sertraline HCl (Zoloft) 25 mg PO DAILY [facility] Last Admin: 10/16/17 08:49 Dose: 25 mg - Labs Labs: 10/15/17 22:02 10/15/17 22:02 PT 12.2 Seconds (9.8-13.1) 10/15/17 22:02 INR 1.1 (0.9-1.2) 10/15/17 22:02 APTT 27.1 Seconds (25.6-37.1) 10/15/17 22:02 - Constitutional Appears: Other (patient refused physical exam) Assessment and Plan - Assessment and Plan (Free Text) Assessment: 72yo F with PMHx of HTN, schizophrenia, 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 - Afebrile, VSS - CT Abd/Pelvis with Oral contrast ordered, will FU results - CLD - IV Abx - Will monitor for colostomy function - Discussed plan with Dr. Salena Bell PGY-3
[2017-10-16] MEDS ORDERED: Oxycodone/Acetaminophen 5/325 mg Tab PO PRN (15:31)
--- NOTE | 2017-10-16 15:32 | CP.PCM.CON ---
<Abigail Bell - Last Filed: 10/16/17 15:33> History of Present Illness - History of Present Illness History of Present Illness: GENERAL SURGERY CONSULT FOR DR. 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 Patient is well known to the surgical service. Patient refuses to answer most questions and refused physical exam. Most of history is obtained from EMR and records from [facility]. She presented to the ED yesterday with low back pain that had been present for a few days. A lumbar CT showed L3 compression fracture, likely subacute. Per the nurse, the patient has not had any output from the colostomy since her arrival to the floor early this morning. Patient states that she last had output from the colostomy yesterday but is unable to specify when or to what amount. Patient refused to answer any further questioning including flatus, vomiting, nausea, pain, etc. CT Abd/Pelvis is pending. Records from [facility]: Patient was admitted on 07/22 to [facility]. She had Hgb [address] was done which showed possible perforated colon mass with mets to liver and pelvis. Patient initially refused transfusion and surgery and was seen by psychiatry as well. On 07/24, she had an exploratory laparotomy by Dr. Romo which confirmed perforation as well as peritonitis. The tumor was adherent to and invading the fallopian tube and ovary as well as small bowel. A low anterior resection, enbloc small bowel resection, end colostomy formation, right salpingoophorectomy was done. Pathology showed a low grade adenocarcinoma rectosigmoid tumor. LN was positive for metastatic adenocarcinoma. 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 Romo Allergies: none Social history: possibly homeless Review of Systems - Review of Systems Systems not reviewed;Unavailable: Uncooperative, Other (patient refused) Past Patient History - Past Medical History & Family History Past Medical History?: Yes - Past Social History Smoking Status: Never Smoked - CARDIAC Hx Hypertension: Yes - PULMONARY Hx Respiratory Disorders: No Hx Tuberculosis: No - NEUROLOGICAL Hx Seizures: No - HEENT Hx HEENT Problems: No - RENAL Hx Chronic Kidney Disease: No - ENDOCRINE/METABOLIC Hx Endocrine Disorders: No - HEMATOLOGICAL/ONCOLOGICAL Hx Anemia: Yes Hx Human Immunodeficiency Virus (HIV): No - INTEGUMENTARY Hx Dermatological Problems: No - MUSCULOSKELETAL/RHEUMATOLOGICAL Hx Arthritis: Yes Hx Falls: No - GASTROINTESTINAL Hx Diverticulitis: Yes - GENITOURINARY/GYNECOLOGICAL Hx Sexually Transmitted Disorders: No - PSYCHIATRIC Hx Bipolar Disorder: Yes Hx Depression: Yes Hx Schizophrenia: Yes Hx Substance Use: No - SURGICAL HISTORY Hx Cholecystectomy: Yes - ANESTHESIA Hx Anesthesia: Yes Hx Anesthesia Reactions: No Meds Allergies/Adverse Reactions: Allergies Allergy/AdvReac Type Severity Reaction Status Date / Time No Known Allergies Allergy Verified 10/15/17 19:41 - Medications Medications: Current Medications Acetaminophen (Tylenol 325mg Tab) 650 mg PO Q6 PRN PRN Reason: Pain, moderate (4-7) Amlodipine Besylate (Norvasc) 10 mg PO DAILY [facility] Last Admin: 10/16/17 08:53 Dose: 10 mg Aripiprazole (Abilify) 5 mg PO DAILY [facility] Last Admin: 10/16/17 08:49 Dose: 5 mg Calcitonin [place] (Miacalcin) 200 iu MARIYA DAILY [facility] Last Admin: 10/16/17 10:14 Dose: Not Given Heparin Sodium (Porcine) (Heparin) 5,000 units IVP Q12 [facility] PRN Reason: Protocol Last Admin: 10/16/17 08:53 Dose: Not Given Ceftriaxone Sodium 1 gm/ (Sodium Chloride) 100 mls @ 100 mls/hr IVPB DAILY [facility] PRN Reason: Protocol Last Admin: 10/16/17 09:32 Dose: Not Given Sodium Chloride (Sodium Chloride 0.9%) 1,000 mls @ 80 mls/hr IV .[id number] [facility] Stop: 10/17/17 06:40 Last Admin: 10/16/17 08:52 Dose: 80 mls/hr Insulin Human Lispro (Humalog) 0 units SC QID [facility] PRN Reason: Protocol Last Admin: 10/16/17 13:50 Dose: Not Given Lisinopril (Zestril) 10 mg PO DAILY [facility] Last Admin: 10/16/17 08:49 Dose: 10 mg Metoprolol Tartrate (Lopressor) 50 mg PO BID [facility] Last Admin: 10/16/17 08:49 Dose: 50 mg Ondansetron HCl (Zofran Inj) 4 mg IVP Q4 PRN PRN Reason: Nausea/Vomiting Oxycodone/Acetaminophen (Percocet 5/325 Mg Tab) 1 tab PO Q6 PRN PRN Reason: Pain, severe (8-10) Stop: 10/19/17 15:32 Sertraline HCl (Zoloft) 25 mg PO DAILY [facility] Last Admin: 10/16/17 08:49 Dose: 25 mg Physical Exam - Constitutional Appears: Other (patient refused physical exam except to allow me to look at colostomy) - GI/Abdominal Exam Additional comments: colostomy bag empty, stoma pink Results - Vital Signs Recent Vital Signs: Last Vital Signs Temp 97.5 F L 10/16/17 08:33 Pulse 74 10/16/17 08:49 Resp 20 10/16/17 08:33 BP 144/72 10/16/17 08:49 Pulse Ox 99 10/16/17 08:33 - Labs Result Diagrams: 10/15/17 22:02 10/15/17 22:02 Labs: Laboratory Results - last 24 hr 10/15/17 10/15/17 10/15/17 20:41 22:02 22:02 WBC 7.3 RBC 4.03 Hgb 9.9 L Hct 31.2 L MCV 77.4 L D MCH 24.5 L MCHC 31.7 L RDW 18.4 H Plt Count 302 MPV 8.5 Neut % (Auto) 86.3 H Lymph % (Auto) 11.3 L Garza % (Auto) 2.0 Eos % (Auto) 0.0 Baso % (Auto) 0.4 Neut # 6.3 Lymph # 0.8 L Garza # 0.1 Eos # 0.0 Baso # 0.0 PT INR APTT Sodium 145 Potassium 3.6 Chloride 109 H Carbon Dioxide 25 Anion Gap 15 BUN 22 H Creatinine 1.2 Est GFR ( Amer) 54 Est GFR (Non-Af Amer) 44 POC Glucose (mg/dL) 239 H Random Glucose 222 H Hemoglobin A1c Lactic Acid Calcium 9.1 Total Bilirubin 0.3 AST 30 ALT 23 Alkaline Phosphatase 76 Troponin I 0.0220 Total Protein 7.6 Albumin 3.7 Globulin 3.9 Albumin/Globulin Ratio 1.0 TSH 3rd Generation Urine Color Urine Clarity Urine pH Ur Specific [place] Urine Protein Urine Glucose (UA) Urine Ketones Urine Blood Urine Nitrate Urine Bilirubin Urine Urobilinogen Ur Leukocyte Esterase Urine RBC (Auto) Urine WBC Clumps (Auto) Urine Microscopic WBC Amorphous Sediment Urine Bacteria Salicylates Urine Opiates Screen Urine Methadone Screen Acetaminophen Ur Barbiturates Screen Ur Phencyclidine Scrn Ur Amphetamines Screen U Benzodiazepines Scrn U Oth Cocaine Metabols U Cannabinoids Screen 10/15/17 10/15/17 10/15/17 22:02 22:02 22:02 WBC RBC Hgb Hct MCV MCH MCHC RDW Plt Count MPV Neut % (Auto) Lymph % (Auto) Garza % (Auto) Eos % (Auto) Baso % (Auto) Neut # Lymph # Garza # Eos # Baso # PT 12.2 INR 1.1 APTT 27.1 Sodium Potassium Chloride Carbon Dioxide Anion Gap BUN Creatinine Est GFR ( Amer) Est GFR (Non-Af Amer) POC Glucose (mg/dL) Random Glucose Hemoglobin A1c Lactic Acid 1.4 Calcium Total Bilirubin AST ALT Alkaline Phosphatase Troponin I Total Protein Albumin Globulin Albumin/Globulin Ratio TSH 3rd Generation Urine Color Urine Clarity Urine pH Ur Specific [place] Urine Protein Urine Glucose (UA) Urine Ketones Urine Blood Urine Nitrate Urine Bilirubin Urine Urobilinogen Ur Leukocyte Esterase Urine RBC (Auto) Urine WBC Clumps (Auto) Urine Microscopic WBC Amorphous Sediment Urine Bacteria Salicylates < 1.0 Urine Opiates Screen Urine Methadone Screen Acetaminophen < 10.0 L Ur Barbiturates Screen Ur Phencyclidine Scrn Ur Amphetamines Screen U Benzodiazepines Scrn U Oth Cocaine Metabols U Cannabinoids Screen 10/16/17 10/16/17 10/16/17 03:35 03:35 08:35 WBC RBC Hgb Hct MCV MCH MCHC RDW Plt Count MPV Neut % (Auto) Lymph % (Auto) Garza % (Auto) Eos % (Auto) Baso % (Auto) Neut # Lymph # Garza # Eos # Baso # PT INR APTT Sodium Potassium Chloride Carbon Dioxide Anion Gap BUN Creatinine Est GFR ( Amer) Est GFR (Non-Af Amer) POC Glucose (mg/dL) Random Glucose Hemoglobin A1c 6.4 Lactic Acid Calcium Total Bilirubin AST ALT Alkaline Phosphatase Troponin I Total Protein Albumin Globulin Albumin/Globulin Ratio TSH 3rd Generation Urine Color Yellow Urine Clarity Turbid Urine pH 6.0 Ur Specific [place] 1.014 Urine Protein 30 Urine Glucose (UA) Neg Urine Ketones Negative Urine Blood Small Urine Nitrate Negative Urine Bilirubin Negative Urine Urobilinogen 0.2-1.0 Ur Leukocyte Esterase Large Urine RBC (Auto) 4 H Urine WBC Clumps (Auto) Occ H Urine Microscopic WBC 632 H Amorphous Sediment Rare H Urine Bacteria Few H Salicylates Urine Opiates Screen Negative Urine Methadone Screen Negative Acetaminophen Ur Barbiturates Screen Negative Ur Phencyclidine Scrn Negative Ur Amphetamines Screen Negative U Benzodiazepines Scrn Negative U Oth Cocaine Metabols Negative U Cannabinoids Screen Negative 10/16/17 08:35 WBC RBC Hgb Hct MCV MCH MCHC RDW Plt Count MPV Neut % (Auto) Lymph % (Auto) Garza % (Auto) Eos % (Auto) Baso % (Auto) Neut # Lymph # Garza # Eos # Baso # PT INR APTT Sodium Potassium Chloride Carbon Dioxide Anion Gap BUN Creatinine Est GFR ( Amer) Est GFR (Non-Af Amer) POC Glucose (mg/dL) Random Glucose Hemoglobin A1c Lactic Acid Calcium Total Bilirubin AST ALT Alkaline Phosphatase Troponin I Total Protein Albumin Globulin Albumin/Globulin Ratio TSH 3rd Generation 0.51 Urine Color Urine Clarity Urine pH Ur Specific [place] Urine Protein Urine Glucose (UA) Urine Ketones Urine Blood Urine Nitrate Urine Bilirubin Urine Urobilinogen Ur Leukocyte Esterase Urine RBC (Auto) Urine WBC Clumps (Auto) Urine Microscopic WBC Amorphous Sediment Urine Bacteria Salicylates Urine Opiates Screen Urine Methadone Screen Acetaminophen Ur Barbiturates Screen Ur Phencyclidine Scrn Ur Amphetamines Screen U Benzodiazepines Scrn U Oth Cocaine Metabols U Cannabinoids Screen Assessment & Plan - Assessment and Plan (Free Text) Assessment: 72yo F with PMHx of HTN, schizophrenia, 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 - Afebrile, VSS - CT Abd/Pelvis with Oral contrast ordered, will FU results - CLD - IV Abx - Will monitor for colostomy function - Discussed plan with Dr. Salena Bell PGY-3 <Darwin Bills - Last Filed: 10/19/17 15:40> Meds - Medications Medications: Current Medications Acetaminophen (Tylenol 325mg Tab) 650 mg PO Q6 PRN PRN Reason: Pain, moderate (4-7) Amlodipine Besylate (Norvasc) 10 mg PO DAILY [facility] Last Admin: 10/19/17 08:56 Dose: 10 mg Aripiprazole (Abilify) 5 mg PO DAILY [facility] Last Admin: 10/19/17 08:55 Dose: 5 mg Calcitonin [place] (Miacalcin) 200 iu MARIYA DAILY [facility] Last Admin: 10/19/17 08:59 Dose: Not Given Docusate Sodium (Colace) 100 mg PO DAILY [facility] Last Admin: 10/19/17 08:55 Dose: 100 mg Heparin Sodium (Porcine) (Heparin) 5,000 units IVP Q12 [facility] PRN Reason: Protocol Last Admin: 10/19/17 08:54 Dose: Not Given Meropenem 500 mg/ Sodium (Chloride) 100 mls @ 100 mls/hr IVPB Q8 [facility] PRN Reason: Protocol Last Admin: 10/19/17 08:55 Dose: 100 mls/hr Insulin Human Lispro (Humalog) 0 units SC QID [facility] PRN Reason: Protocol Last Admin: 10/19/17 12:26 Dose: Not Given Lisinopril (Zestril) 10 mg PO DAILY [facility] Last Admin: 10/19/17 08:55 Dose: 10 mg Metoprolol Tartrate (Lopressor) 50 mg PO BID [facility] Last Admin: 10/19/17 08:56 Dose: 50 mg Ondansetron HCl (Zofran Inj) 4 mg IVP Q4 PRN PRN Reason: Nausea/Vomiting Potassium Chloride (K-Dur 20 Meq Er Tab) 40 meq PO ONCE ONE Stop: 10/19/17 18:01 Sertraline HCl (Zoloft) 25 mg PO DAILY [facility] Last Admin: 10/19/17 08:55 Dose: 25 mg Results - Vital Signs Recent Vital Signs: Last Vital Signs Temp 98.1 F 10/19/17 07:52 Pulse 87 10/19/17 08:55 Resp 18 10/19/17 07:52 BP 147/82 10/19/17 08:55 Pulse Ox 98 10/19/17 07:52 - Labs Result Diagrams: 10/19/17 11:15 10/19/17 11:15 Labs: Laboratory Results - last 24 hr 10/18/17 10/18/17 10/19/17 15:23 21:02 05:58 WBC RBC Hgb Hct MCV MCH MCHC RDW Plt Count Sodium Potassium Chloride Carbon Dioxide Anion Gap BUN Creatinine Est GFR ( Amer) Est GFR (Non-Af Amer) POC Glucose (mg/dL) 177 H 251 H 107 Random Glucose Calcium 10/19/17 10/19/17 10/19/17 10:57 11:15 11:15 WBC 7.1 RBC 4.14 Hgb 10.4 L Hct 31.9 L MCV 77.0 L MCH 25.1 L MCHC 32.6 L RDW 18.2 H Plt Count 335 Sodium 138 Potassium 3.0 L Chloride 103 Carbon Dioxide 26 Anion Gap 12 BUN 8 Creatinine 0.7 Est GFR ( Amer) > 60 Est GFR (Non-Af Amer) > 60 POC Glucose (mg/dL) 216 H Random Glucose 190 H Calcium 8.9 Attending/Attestation - Attestation I have personally seen and examined this patient.: Yes I have fully participated in the care of the patient.: Yes I have reviewed all pertinent clinical information: Yes Notes (Text): Pt was seen and examined at bedside Agree with above note and assessment Pt with Nonfunctioning colostomy S/P LAR at [facility] Mild abdominal tenderness Labs and radiology reviewed Ass: Colostomy stutus Plan : CT scan of A/P with PO and IV contrast Clear liquid diet C/w current mx Plan d.w pt in detail Risk and benefit explained in detail.
[2017-10-16] MEDS ORDERED: Iohexol 300 100 ML IJ ONE (15:57)
--- NOTE | 2017-10-16 16:44 | CT ---
PROCEDURE: CT Abdomen and Pelvis with contrast HISTORY: r/o colostomy obstruction COMPARISON: 04/27/2017 TECHNIQUE: Contrast dose: 90 mL Omnipaque 300 Radiation dose: Total exam DLP = 365.50 mGy-cm. This CT exam was performed using one or more of the following dose reduction techniques: Automated exposure control, adjustment of the mA and/or kV according to patient size, and/or use of iterative reconstruction technique. FINDINGS: LOWER THORAX: Linear scar left lower lobe. No infiltrate/ effusion. LIVER: Multiple nonspecific low-density hepatic lesions, unchanged from prior. Possible cysts. No biliary dilatation. Smooth contour. Normal size and attenuation. GALLBLADDER AND BILE DUCTS: Gallbladder not visualized. Presumed status post cholecystectomy though surgical clips are not seen. PANCREAS: Unremarkable. No gross lesion or ductal dilatation. SPLEEN: Unremarkable. ADRENALS: Unremarkable. No mass. KIDNEYS AND URETERS: 3.3 cm right upper pole renal cortical cyst. No calculus or hydronephrosis. VASCULATURE: No abdominal aortic aneurysm. Inferior vena caval filter noted. BOWEL: No bowel obstruction. Status post sigmoidectomy. Left lower quadrant colostomy. There is a distal ileal anastomosis noted. Presumed resection of ileum. Left lower quadrant colostomy. There is no evidence of colostomy obstruction. There is no dilated bowel proximal to the colostomy. Fecal matter is seen continuously to the level of the colostomy. Oral contrast is seen extending to the splenic flexure. Marked mural thickening of the rectum, consistent with nonspecific proctitis. Extensive perirectal infiltration suspicious for an infectious process. Numerous enlarged perirectal lymph nodes with 1 mass, presumed lymphadenopathy, measuring 2.7 cm in diameter. Presacral soft tissue thickening. There is a questionable low density collection in the left lower quadrant, with peripheral enhancement, suspicious for abscess. This measures roughly 3.5 cm in greatest dimension. Differential diagnosis includes necrotic confluent lymphadenopathy. APPENDIX: Normal appendix. PERITONEUM: Unremarkable. No free fluid. No free air. LYMPH NODES: There is pelvic and retroperitoneal lymphadenopathy. There is a confluent retroperitoneal node just below the iliac bifurcation measuring 2.8 cm in greatest dimension. BLADDER: Minimal perivesical hazy density which may reflect a cystitis. Please correlate with urinalysis. No significant mural thickening. REPRODUCTIVE: Status post hysterectomy. BONES: No acute fracture. OTHER FINDINGS: None. IMPRESSION: No evidence of colostomy obstruction. Status post sigmoid resection. Probable partial distal ileal resection. Marked mural thickening of the rectum with perirectal inflammatory change and extensive perirectal lymphadenopathy. Questionable irregular collection versus in confluent necrotic lymphadenopathy in left pelvis. Retroperitoneal and pelvic lymphadenopathy. Mild perivesical infiltration which may reflect a cystitis. Please correlate.
[2017-10-17] MEDS: Insulin Lispro (humaLOG) 100 Units/ml Inj SC SCH ×4 (08:37→21:20)
[2017-10-17] MEDS: Calcitonin 200 Int Units/Inh Nasal Spray (3.7 ml) NAS SCH (09:07)
--- NOTE | 2017-10-17 09:19 | CP.PCM.PN ---
<Jennifer Daily - Last Filed: 10/17/17 09:26> Subjective - Date & Time of Evaluation Date of Evaluation: 10/17/17 Time of Evaluation: 08:00 - Subjective Subjective: General Surgery Dr. Martino Pt S&E @bedside. NAEO. no complaints this AM. denies F/C, N/C, abd pain. tolerating diet. (+) ostomy output. Objective - Vital Signs/Intake and Output Vital Signs (last 24 hours): Temp Pulse Resp BP Pulse Ox 98.1 F 66 20 171/62 H 100 10/17/17 07:49 10/17/17 07:49 10/17/17 07:49 10/17/17 07:49 10/17/17 07:49 - Medications Medications: Current Medications Acetaminophen (Tylenol 325mg Tab) 650 mg PO Q6 PRN PRN Reason: Pain, moderate (4-7) Amlodipine Besylate (Norvasc) 10 mg PO DAILY [facility] Last Admin: 10/17/17 08:39 Dose: 10 mg Aripiprazole (Abilify) 5 mg PO DAILY [facility] Last Admin: 10/17/17 08:39 Dose: 5 mg Calcitonin [place] (Miacalcin) 200 iu MARIYA DAILY [facility] Last Admin: 10/17/17 09:07 Dose: Not Given Heparin Sodium (Porcine) (Heparin) 5,000 units IVP Q12 [facility] PRN Reason: Protocol Last Admin: 10/17/17 09:07 Dose: Not Given Ceftriaxone Sodium 1 gm/ (Sodium Chloride) 100 mls @ 100 mls/hr IVPB DAILY [facility] PRN Reason: Protocol Last Admin: 10/17/17 08:39 Dose: 100 mls/hr Insulin Human Lispro (Humalog) 0 units SC QID [facility] PRN Reason: Protocol Last Admin: 10/17/17 08:37 Dose: Not Given Lisinopril (Zestril) 10 mg PO DAILY [facility] Last Admin: 10/17/17 08:39 Dose: 10 mg Metoprolol Tartrate (Lopressor) 50 mg PO BID [facility] Last Admin: 10/17/17 08:39 Dose: 50 mg Ondansetron HCl (Zofran Inj) 4 mg IVP Q4 PRN PRN Reason: Nausea/Vomiting Oxycodone/Acetaminophen (Percocet 5/325 Mg Tab) 1 tab PO Q6 PRN PRN Reason: Pain, severe (8-10) Stop: 10/19/17 15:32 Sertraline HCl (Zoloft) 25 mg PO DAILY [facility] Last Admin: 10/17/17 08:40 Dose: 25 mg - Labs Labs: 10/15/17 22:02 10/15/17 22:02 PT 12.2 Seconds (9.8-13.1) 10/15/17 22:02 INR 1.1 (0.9-1.2) 10/15/17 22:02 APTT 27.1 Seconds (25.6-37.1) 10/15/17 22:02 - Constitutional Appears: Non-toxic, No Acute Distress - Head Exam Head Exam: NORMAL INSPECTION - Eye Exam Eye Exam: Normal appearance - ENT Exam ENT Exam: Mucous Membranes Moist - Respiratory Exam Respiratory Exam: NORMAL BREATHING PATTERN. absent: Accessory Muscle Use, Respiratory Distress - Cardiovascular Exam Cardiovascular Exam: absent: Bradycardia, Tachycardia - GI/Abdominal Exam GI & Abdominal Exam: Soft. absent: Distended, Firm, Guarding, Tenderness, Rebound Additional comments: stoma pink, patent (+) formed stool in ostomy midline scar present. - Extremities Exam Extremities Exam: Normal Inspection - Neurological Exam Neurological Exam: Alert, Awake, Oriented x3 - Psychiatric Exam Psychiatric exam: Normal Affect, Normal Mood - Skin Skin Exam: Dry, Intact, Normal Color, Warm Assessment and Plan - Assessment and Plan (Free Text) Assessment: 72 y/o 72yo F w/ PMHx of rectosigmoid Ca w/ mets on neoadjuvant chemo s/p LAR w / colostomy admitted for pylonephritis. Surgery consulted for poor ostomy output - (+) ostomy output this morning; continue to monitor - CT A/P negative for obstruction - ADAT - cont medical management - No surgical intervention at this time - please consult if needed Pt discussed w/ Dr. Salena Daily DO PGY2 <Darwin Martino - Last Filed: 10/19/17 15:44> Objective - Vital Signs/Intake and Output Vital Signs (last 24 hours): Temp Pulse Resp BP Pulse Ox 98.1 F 87 18 147/82 98 10/19/17 07:52 10/19/17 08:55 10/19/17 07:52 10/19/17 08:55 10/19/17 07:52 - Medications Medications: Current Medications Acetaminophen (Tylenol 325mg Tab) 650 mg PO Q6 PRN PRN Reason: Pain, moderate (4-7) Amlodipine Besylate (Norvasc) 10 mg PO DAILY [facility] Last Admin: 10/19/17 08:56 Dose: 10 mg Aripiprazole (Abilify) 5 mg PO DAILY [facility] Last Admin: 10/19/17 08:55 Dose: 5 mg Calcitonin [place] (Miacalcin) 200 iu MARIYA DAILY [facility] Last Admin: 10/19/17 08:59 Dose: Not Given Docusate Sodium (Colace) 100 mg PO DAILY [facility] Last Admin: 10/19/17 08:55 Dose: 100 mg Heparin Sodium (Porcine) (Heparin) 5,000 units IVP Q12 [facility] PRN Reason: Protocol Last Admin: 10/19/17 08:54 Dose: Not Given Meropenem 500 mg/ Sodium (Chloride) 100 mls @ 100 mls/hr IVPB Q8 [facility] PRN Reason: Protocol Last Admin: 10/19/17 08:55 Dose: 100 mls/hr Insulin Human Lispro (Humalog) 0 units SC QID [facility] PRN Reason: Protocol Last Admin: 10/19/17 12:26 Dose: Not Given Lisinopril (Zestril) 10 mg PO DAILY [facility] Last Admin: 10/19/17 08:55 Dose: 10 mg Metoprolol Tartrate (Lopressor) 50 mg PO BID [facility] Last Admin: 10/19/17 08:56 Dose: 50 mg Ondansetron HCl (Zofran Inj) 4 mg IVP Q4 PRN PRN Reason: Nausea/Vomiting Potassium Chloride (K-Dur 20 Meq Er Tab) 40 meq PO ONCE ONE Stop: 10/19/17 18:01 Sertraline HCl (Zoloft) 25 mg PO DAILY [facility] Last Admin: 10/19/17 08:55 Dose: 25 mg - Labs Labs: 10/19/17 11:15 10/19/17 11:15 PT 12.2 Seconds (9.8-13.1) 10/15/17 22:02 INR 1.1 (0.9-1.2) 10/15/17 22:02 APTT 27.1 Seconds (25.6-37.1) 10/15/17 22:02 Attending/Attestation - Attestation I have personally seen and examined this patient.: Yes I have fully participated in the care of the patient.: Yes I have reviewed all pertinent clinical information, including history, physical exam and plan: Yes Notes (Text): Pt was seen and examined at bedside Agree with above note and assessment Colostomy is functioning Advance diet as tolerated f.U with Surgeon at [facility] c.w current mx Plan d.w pt in detail Risk and benefit explained in detail.
--- NOTE | 2017-10-17 11:16 | CP.PCM.CON ---
History of Present Illness - History of Present Illness History of Present Illness: This is a 72 yrs old female who is well known to me. She has a colon cancer in the sigmoid area. This was a large tumor in the sicmoid which was inoperable to start out.Surgeons had suggested chemotherapy prior to surgery. She was given bevacizumab+ folfox and had a good response. She was then asked to go back to the surgeon who had first seen her , .but she refused to have surgery.she was told that she may get a rupture of the colonic wall. She still refused and got up and walked out of the infusion center. 3 months later i got a call from a surgical instrument maker in [facility] saying she was admitted with a ruptured colon.The pt had a resection of the area with a colostomty , had evidence of tumor to the fallopian tube which was also resected. There was evidence of metastasis to the liver and locally due to colon wall infiltration and rupture . She was advised by the surgeons at [facility] to re start Chemotherapy and was referred to Dr Barrera. Since it was closer to her home, decided to continue her treatment there. She was seen by oncologist Dr Barrera who gave her the first dose of chemo on Oct 14. She did well with the chemo, but now has pyelonephritis and was admitted for the same. When she is better, she will go back to Dr Barrera for the next course of chemotherapy. Past H?O HTN and scizophrenia Past Patient History - Past Medical History & Family History Past Medical History?: Yes - Past Social History Smoking Status: Never Smoked - CARDIAC Hx Hypertension: Yes - PULMONARY Hx Respiratory Disorders: No Hx Tuberculosis: No - NEUROLOGICAL Hx Seizures: No - HEENT Hx HEENT Problems: No - RENAL Hx Chronic Kidney Disease: No - ENDOCRINE/METABOLIC Hx Endocrine Disorders: No - HEMATOLOGICAL/ONCOLOGICAL Hx Anemia: Yes Hx Human Immunodeficiency Virus (HIV): No - INTEGUMENTARY Hx Dermatological Problems: No - MUSCULOSKELETAL/RHEUMATOLOGICAL Hx Arthritis: Yes Hx Falls: No - GASTROINTESTINAL Hx Diverticulitis: Yes - GENITOURINARY/GYNECOLOGICAL Hx Sexually Transmitted Disorders: No - PSYCHIATRIC Hx Bipolar Disorder: Yes Hx Depression: Yes Hx Schizophrenia: Yes Hx Substance Use: No - SURGICAL HISTORY Hx Cholecystectomy: Yes - ANESTHESIA Hx Anesthesia: Yes Hx Anesthesia Reactions: No Meds Allergies/Adverse Reactions: Allergies Allergy/AdvReac Type Severity Reaction Status Date / Time No Known Allergies Allergy Verified 10/15/17 19:41 - Medications Medications: Current Medications Acetaminophen (Tylenol 325mg Tab) 650 mg PO Q6 PRN PRN Reason: Pain, moderate (4-7) Amlodipine Besylate (Norvasc) 10 mg PO DAILY [facility] Last Admin: 10/17/17 08:39 Dose: 10 mg Aripiprazole (Abilify) 5 mg PO DAILY [facility] Last Admin: 10/17/17 08:39 Dose: 5 mg Calcitonin [place] (Miacalcin) 200 iu MARIYA DAILY [facility] Last Admin: 10/17/17 09:07 Dose: Not Given Docusate Sodium (Colace) 100 mg PO DAILY [facility] Heparin Sodium (Porcine) (Heparin) 5,000 units IVP Q12 [facility] PRN Reason: Protocol Last Admin: 10/17/17 09:07 Dose: Not Given Ceftriaxone Sodium 1 gm/ (Sodium Chloride) 100 mls @ 100 mls/hr IVPB DAILY [facility] PRN Reason: Protocol Last Admin: 10/17/17 08:39 Dose: 100 mls/hr Insulin Human Lispro (Humalog) 0 units SC QID [facility] PRN Reason: Protocol Last Admin: 10/17/17 08:37 Dose: Not Given Lisinopril (Zestril) 10 mg PO DAILY [facility] Last Admin: 10/17/17 08:39 Dose: 10 mg Metoprolol Tartrate (Lopressor) 50 mg PO BID [facility] Last Admin: 10/17/17 08:39 Dose: 50 mg Ondansetron HCl (Zofran Inj) 4 mg IVP Q4 PRN PRN Reason: Nausea/Vomiting Oxycodone/Acetaminophen (Percocet 5/325 Mg Tab) 1 tab PO Q6 PRN PRN Reason: Pain, severe (8-10) Stop: 10/19/17 15:32 Sertraline HCl (Zoloft) 25 mg PO DAILY [facility] Last Admin: 10/17/17 08:40 Dose: 25 mg Physical Exam - Additional Findings Additional findings: Physial Exam; Alert, well oriented in no acute distress neck; supple, no adenpopathy Chest; Clear, no rales or rhonchi Heart; RSR, no murmur Abd; soft, no mass, no h/s megaly, colostomy working well. Results - Vital Signs Recent Vital Signs: Last Vital Signs Temp 98.1 F 10/17/17 07:49 Pulse 66 10/17/17 07:49 Resp 20 10/17/17 07:49 BP 171/62 H 10/17/17 07:49 Pulse Ox 100 10/17/17 07:49 - Labs Result Diagrams: 10/15/17 22:02 10/15/17 22:02 Labs: Laboratory Results - last 24 hr 10/16/17 10/16/17 10/16/17 08:35 16:50 21:34 POC Glucose (mg/dL) 144 H 138 H Hemoglobin A1c 6.4 10/17/17 06:18 POC Glucose (mg/dL) 126 H Hemoglobin A1c Assessment & Plan - Assessment and Plan (Free Text) Assessment: Impression; Colon cancer, abdominal and liver metastasis, pyelonephritis. Plan: Plan; IUpadhya. Her CBC is normal at this time. feel that after her pyelonephritis is treated she should follow up for chemo with Dr - Date & Time Date: 10/17/17 Time: 11:27
[2017-10-18] MEDS: Insulin Lispro (humaLOG) 100 Units/ml Inj SC SCH ×4 (08:31→21:35)
[2017-10-18] MEDS: Calcitonin 200 Int Units/Inh Nasal Spray (3.7 ml) NAS SCH (13:07)
[2017-10-18] MEDS ORDERED: Meropenem 500 MG in Sodium Chloride 0.9% 100 ML IVPB ONE (17:00)
--- NOTE | 2017-10-18 22:20 | PN ---
DATE: 10/17/2017 DAILY PROGRESS NOTE SUBJECTIVE: The patient was seen on 10/17/2017. She was not in any cardiopulmonary distress. PHYSICAL EXAMINATION: VITAL SIGNS: The patient was afebrile with blood pressure 164/66, temperature 97.9, respiratory rate 20 and pulse 61. HEENT: Pupils equal, reactive to light. Normal-appearing mucosa of the conjunctivae, oropharyngeal and nasal membrane mucosa. NECK: Supple. No JVD. No carotid bruit. No lymph node. No thyromegaly. CHEST AND LUNGS: Bilateral symmetrical expansion. Good air exchange. No rales. No rhonchi. CARDIOVASCULAR SYSTEM: PMI not localized. S1 and S2. No additional sounds. ABDOMEN: Normoactive bowel sounds. No tenderness. No organomegaly. No masses. Right leg colostomy bag in place. EXTREMITIES: No cyanosis. No clubbing. No edema. CENTRAL NERVOUS SYSTEM: Alert, awake, oriented x2. No neurological deficit could be appreciated. ASSESSMENT: 1. Colorectal cancer, status post colostomy and bowel resection. 2. Urinary tract infection. 3. Hypertension. 4. Lumbar vertebral compression fracture. PLAN: We will check urine culture and blood culture. Continue current medications and antibiotics and further recommendations of surgery and oncology. Jesus Pandya MD
[2017-10-19] MEDS: Meropenem 500 MG in Sodium Chloride 0.9% 100 ML IVPB SCH ×3 (00:40→16:04)
[2017-10-19] MEDS: Insulin Lispro (humaLOG) 100 Units/ml Inj SC SCH ×4 (08:54→21:07)
[2017-10-19] MEDS: Calcitonin 200 Int Units/Inh Nasal Spray (3.7 ml) NAS SCH ×2 (08:56→08:59)
--- NOTE | 2017-10-19 10:04 | HP ---
HISTORY OF PRESENT ILLNESS: This is a 72 years old female who has a diagnosis of colorectal cancer, presented to emergency room for back pain, found to have urinary tract infection and subacute compression fracture of the lumbar spine. The patient was evaluated in the emergency room and admitted for further management after starting IV antibiotics. The patient has missed some cycles of chemotherapy after starting in [facility] with Dr. Miller. The patient developed abdominal pain and found to have a perforated colon and peritonitis. The patient was admitted to [facility] where she had bowel resection and colostomy. The patient was referred for chemotherapy to Dr. Burkett, who gave the patient a cycle of chemotherapy on the day prior to this admission. The patient denied to have any shortness of breath or chest pain and other review of systems is negative. ALLERGY: NO KNOWN ALLERGY. MEDICATIONS: Home medications are as per MAR. PAST MEDICAL HISTORY: Hypertension, colorectal cancer and bipolar disorder. SOCIAL HISTORY: No history of smoking, EtOH or substance abuse. FAMILY HISTORY: Noncontributory. PHYSICAL EXAMINATION: GENERAL: The patient is in bed comfortable, not in any cardiopulmonary distress. VITAL SIGNS: Blood pressure 144/72, temperature 97.5, respiratory rate 20 and pulse 70. HEENT: Pupils equal, reactive to light. Normal-appearing mucosa of the conjunctivae, oropharyngeal and nasal membrane mucosa. NECK: Supple. No JVD. No carotid bruit. No lymph node. No thyromegaly. CHEST AND LUNGS: Bilateral symmetrical expansion. Good air exchange. No rales, no rhonchi. CARDIOVASCULAR SYSTEM: PMI not localized. S1, S2. No additional sounds. ABDOMEN: Normoactive bowel sounds. No tenderness. No organomegaly. No masses. Colostomy bag is in place. EXTREMITIES: No cyanosis, no clubbing, no edema. CENTRAL NERVOUS SYSTEM: Alert, awake, oriented x2. No neurological deficits could be appreciated. ASSESSMENT: 1. Symptomatic urinary tract infection. 2. Compression fracture of the lumbar spine. 3. Compression fracture, likely subacute to chronic, stable. 4. Bipolar disorder. 5. Hypertension. PLAN: Continue IV antibiotics started and the patient was scheduled for renal ultrasound as well as CAT scan of the abdomen and pelvis and surgical consultation and also Oncology consult. [facility] MD Mumtaz [facility] # [id number]
[2017-10-19 11:29] LABS: HEMATOCRIT 31.9 % (34.0-47.0); MEAN CORPUSCULAR HEMOGLOBIN 25.1 pg (27.0-31.0); MEAN CORPUSCULAR HGB CONC 32.6 g/dL (33.0-37.0); RED CELL DISTRIBUTION WIDTH 18.2 % (11.5-14.5); WHITE BLOOD COUNT 7.1 K/uL (4.8-10.8)
--- NOTE | 2017-10-19 11:39 | PQF GENQUE ---
Dr. Pandya, The attending physician is required to clarify conflicting documentation in the medical record. The following documentation is noted in the medical record: Diagnosis 1: UTI Documented by: Attending MD Location: H and P and progress note Diagnosis 2: Pyelonephritis Documented by: ER, Surgery, Oncology Location: Consults and progress notes Please clarify the appropriate diagnosis for this patient. Urine culture: Klebsiella Pneumoniae 10/16: Renal US: Impression:Exophytic cyst upper pole right kidney. No evidence of shadowing calculi hydronephrosis. 10/16: CT Abdomen/pelvis:Imp.: No evidence of colostomy obstruction. Status post sigmoid resection. Probable partial distal ileal resection. Marked mural thickening of the rectum with perirectal inflammatory change and extensive perirectal lymphadenopathy. Questionable irregular collection versus in confluent necrotic lymphadenopathy in left pelvis. Retroperitoneal and pelvic lymphadenopathy. Mild perivesical infiltration which may reflect a cystitis. Please correlate IVAB's: Rocephin-> Merrem This form is a permanent part of the medical record Clarification of your documentation is requested to better reflect the severity of illness and intensity of treatment of your patient. Indicators present [] Specify: [] [] Specify: [] [] Specify: [] [] Specify: [] Location in the medical record that reflects the above clinical findings: [] Treatment Provided: [] PHYSICIAN'S RESPONSE Based on your medical judgment of the clinical indicators outlined above please clarify the following: [] Practitioner response [] If unable to determine, please check the box, sign and date. Present On Admission (POA) Indicator: [] Present at the time of admission [] Not present at the time of admission [] Clinically Undetermined In responding to this query, please exercise your independent professional judgment. The fact that a question is asked does not imply that any particular answer is desired or expected. Thank you for your clarification on this documentation. If you have any questions please call. * Thank you, Kelly Lucas RN EXT. #[id number] MTDD
[2017-10-19 11:46] LABS: BLOOD UREA NITROGEN 8 mg/dl (7-17); CALCIUM 8.9 mg/dL (8.4-10.2); CARBON DIOXIDE 26 mmol/L (22-30); CHLORIDE 103 mmol/L (98-107); GFR AFRICAN-AMERICAN > 60; GLUCOSE,RANDOM 190 mg/dL (65-105); SODIUM 138 mmol/l (132-148)
[2017-10-19] MEDS ORDERED: Potassium Chloride 20 mEq ER Tab PO ONE ×2 (13:37→18:00)
[2017-10-19] MEDS: Meropenem 1 GM in Sodium Chloride 0.9% 100 ML IVPB SCH (17:26)
--- NOTE | 2017-10-20 00:53 | PN ---
DATE: 10/19/2017 SUBJECTIVE: The patient is seen today, 10/19/2017. She is not in any cardiopulmonary distress. PHYSICAL EXAMINATION: VITAL SIGNS: Patient is afebrile with blood pressure 103/66, temperature 97.4, respiratory rate 17, pulse 63. HEENT: Pupils are equal and reactive to light. Slightly pale mucosa of the conjunctivae. NECK: Supple. No JVD. No carotid bruit. No lymph node. No thyromegaly. CHEST AND LUNGS: Bilateral symmetrical expansion. Good air exchange. No rales. No rhonchi. CARDIOVASCULAR SYSTEM: PMI not localized. S1 and S2. No additional sounds. ABDOMEN: Normoactive bowel sounds. No tenderness. No organomegaly. No masses. EXTREMITIES: No cyanosis. No clubbing. No edema. CENTRAL NERVOUS SYSTEM: Alert, awake, oriented x2. No neurological deficit could be appreciated. ASSESSMENT: 1. Metastatic cancer of colon. 2. Symptomatic urinary tract infection. 3. Lumbar vertebra fracture. 4. Hypertension. 5. Status post partial bowel resection with colostomy. PLAN: ID consult as urine culture showed ESBL-positive organism. Patient was started already on meropenem that will be continued and the dose was increased. Discussed patient's condition with Dr. Koch. Jesus Pandya MD
--- NOTE | 2017-10-20 01:56 | CON ---
INFECTIOUS DISEASE CONSULTATION HISTORY OF PRESENT ILLNESS: The patient is being seen for a beta-lactamase positive Klebsiella pneumoniae, which is showing sensitivities to carbapenems those being meropenem and imipenem and gentamicin and ciprofloxacin. Upon review of the MICs, except there was concerning patient's history of colon cancer, felt that it would be preferable to treat her initially with meropenem 1 gm IV piggyback q.12. The patient is a 72-year-old female with history of colorectal cancer, status post colostomy and bowel resection, urinary tract infection, which is being addressed in this note, hypertension and lumbar vertebral compression fracture. At this point, as previously stated, I feel that she will be treated with meropenem 1 gm IV piggyback q.12. Julio Cesar Koch MD
[2017-10-20] MEDS: Meropenem 1 GM in Sodium Chloride 0.9% 100 ML IVPB SCH ×2 (04:35→17:12)
[2017-10-20 06:27] LABS: ALB/GLOB RATIO 0.9 (1.0-2.1); ALKALINE PHOSPHATASE 57 U/L (38-126); ALT/SGPT 29 U/L (9-52); AST/SGOT 23 U/L (14-36); BILIRUBIN,TOTAL 0.3 mg/dl (0.2-1.3); BLOOD UREA NITROGEN 11 mg/dl (7-17); CALCIUM 8.8 mg/dL (8.4-10.2); CARBON DIOXIDE 27 mmol/L (22-30); CHLORIDE 109 mmol/L (98-107); GFR AFRICAN-AMERICAN > 60; GLUCOSE,RANDOM 118 mg/dL (65-105); POTASSIUM 3.6 MMOL/L (3.6-5.0); SODIUM 143 mmol/l (132-148); TOTAL PROTEIN 6.9 G/DL (6.3-8.2)
[2017-10-20] MEDS: Insulin Lispro (humaLOG) 100 Units/ml Inj SC SCH ×4 (09:13→22:57)
[2017-10-20] MEDS: Calcitonin 200 Int Units/Inh Nasal Spray (3.7 ml) NAS SCH ×3 (09:16→10:16)
--- NOTE | 2017-10-21 03:47 | PN ---
DATE: 10/20/2017 SUBJECTIVE: The patient is seen today, 10/20/2017 is on IV antibiotics and afebrile. PHYSICAL EXAMINATION: VITAL SIGNS: Blood pressure is 128/80, temperature 98.5, respiratory rate 20, and pulse 70. HEENT: Pupils equal, reactive to light. Normal-appearing mucosa of the conjunctivae, oropharyngeal, and nasal membrane mucosa. NECK: Supple. No JVD. No carotid bruit. No lymph node. No thyromegaly. CHEST AND LUNGS: Bilateral symmetrical expansion. Good air exchange. No rales, no rhonchi. CARDIOVASCULAR SYSTEM: PMI not localized. S1, S2. No additional sounds. ABDOMEN: Colostomy in place. EXTREMITIES: No cyanosis, no clubbing, no edema. CENTRAL NERVOUS SYSTEM: Alert, awake, oriented x2. No neurological deficits could be appreciated. ASSESSMENT: Symptomatic urinary tract infection, back pain secondary to compression fracture of lumbar vertebra, colorectal cancer, hypertension status post bowel resection with colostomy. PLAN: Continue current IV antibiotics and follow up ID recommendations and continue current medications. Jesus Pandya MD
[2017-10-21] MEDS: Meropenem 1 GM in Sodium Chloride 0.9% 100 ML IVPB SCH ×2 (05:58→17:16)
[2017-10-21] MEDS: Insulin Lispro (humaLOG) 100 Units/ml Inj SC SCH ×4 (09:40→23:01)
[2017-10-21] MEDS: Calcitonin 200 Int Units/Inh Nasal Spray (3.7 ml) NAS SCH (09:41)
--- NOTE | 2017-10-21 11:16 | CP.PCM.PN ---
Subjective - Date & Time of Evaluation Date of Evaluation: 10/21/17 Time of Evaluation: 11:12 - Subjective Subjective: Pt is afebrile in no acute distress, No more pain in the lower back. She is on antibiotics for pyelonephritis.caused by klebsiella pneumoni She is to go for chemo in 2 weeks Objective - Vital Signs/Intake and Output Vital Signs (last 24 hours): Temp Pulse Resp BP Pulse Ox 98.4 F 90 18 177/79 H 100 10/21/17 07:24 10/21/17 09:42 10/21/17 07:24 10/21/17 09:42 10/21/17 07:24 - Medications Medications: Current Medications Acetaminophen (Tylenol 325mg Tab) 650 mg PO Q6 PRN PRN Reason: Pain, moderate (4-7) Amlodipine Besylate (Norvasc) 10 mg PO DAILY [facility] Last Admin: 10/21/17 09:41 Dose: 10 mg Aripiprazole (Abilify) 5 mg PO DAILY [facility] Last Admin: 10/21/17 09:39 Dose: 5 mg Calcitonin [place] (Miacalcin) 200 iu MARIYA DAILY [facility] Last Admin: 10/21/17 09:41 Dose: 1 spray Docusate Sodium (Colace) 100 mg PO DAILY [facility] Last Admin: 10/21/17 09:39 Dose: 100 mg Heparin Sodium (Porcine) (Heparin) 5,000 units IVP Q12 [facility] PRN Reason: Protocol Last Admin: 10/21/17 09:40 Dose: 5,000 units Meropenem 1 gm/ Sodium (Chloride) 100 mls @ 100 mls/hr IVPB Q12H [facility] PRN Reason: Protocol Last Admin: 10/21/17 05:58 Dose: 100 mls/hr Insulin Human Lispro (Humalog) 0 units SC QID [facility] PRN Reason: Protocol Last Admin: 10/21/17 09:40 Dose: Not Given Lisinopril (Zestril) 10 mg PO DAILY [facility] Last Admin: 10/21/17 09:42 Dose: 10 mg Metoprolol Tartrate (Lopressor) 50 mg PO BID [facility] Last Admin: 10/21/17 09:41 Dose: 50 mg Ondansetron HCl (Zofran Inj) 4 mg IVP Q4 PRN PRN Reason: Nausea/Vomiting Sertraline HCl (Zoloft) 25 mg PO DAILY [facility] Last Admin: 10/21/17 09:42 Dose: 25 mg - Labs Labs: 10/19/17 11:15 10/20/17 05:30 PT 12.2 Seconds (9.8-13.1) 10/15/17 22:02 INR 1.1 (0.9-1.2) 10/15/17 22:02 APTT 27.1 Seconds (25.6-37.1) 10/15/17 22:02
[2017-10-22] MEDS: Meropenem 1 GM in Sodium Chloride 0.9% 100 ML IVPB SCH ×2 (06:19→16:34)
[2017-10-22] MEDS: Calcitonin 200 Int Units/Inh Nasal Spray (3.7 ml) NAS SCH (08:35)
[2017-10-22] MEDS: Insulin Lispro (humaLOG) 100 Units/ml Inj SC SCH ×4 (08:36→22:18)
[2017-10-22] MEDS: Lactobacillus Acidophilus 500 MU Cap PO SCH (16:16)
[2017-10-23] MEDS ORDERED: Metoprolol 1 mg/ml Inj IVP ONE (00:38)
[2017-10-23] MEDS: Meropenem 1 GM in Sodium Chloride 0.9% 100 ML IVPB SCH ×2 (05:48→17:09)
[2017-10-23 06:02] LABS: MEAN CELL VOLUME 77.6 fl (81.0-99.0); MEAN CORPUSCULAR HEMOGLOBIN 24.3 pg (27.0-31.0); MEAN CORPUSCULAR HGB CONC 31.2 g/dL (33.0-37.0); WHITE BLOOD COUNT 14.6 K/uL (4.8-10.8)
[2017-10-23 06:42] LABS: BLOOD UREA NITROGEN 7 mg/dl (7-17); CALCIUM 9.3 mg/dL (8.4-10.2); CARBON DIOXIDE 27 mmol/L (22-30); CHLORIDE 102 mmol/L (98-107); GFR AFRICAN-AMERICAN > 60; GLUCOSE,RANDOM 132 mg/dL (65-105); POTASSIUM 3.6 MMOL/L (3.6-5.0); SODIUM 138 mmol/l (132-148)
[2017-10-23] MEDS: Calcitonin 200 Int Units/Inh Nasal Spray (3.7 ml) NAS SCH (08:34)
[2017-10-23] MEDS: Insulin Lispro (humaLOG) 100 Units/ml Inj SC SCH ×4 (08:35→22:00)
[2017-10-23] MEDS: Lactobacillus Acidophilus 500 MU Cap PO SCH ×3 (09:58→16:05)
--- NOTE | 2017-10-23 22:11 | PN ---
DATE: 10/23/2017 DAILY PROGRESS NOTE SUBJECTIVE: The patient was seen today on 10/23/2017. She is not in any cardiopulmonary distress with complete resolution of the abdominal pain. PHYSICAL EXAMINATION: VITAL SIGNS: Blood pressure 125/72, temperature 99.6, respiratory rate 20 and pulse 82. HEENT: Pupils equal, reactive to light. Normal-appearing mucosa of the conjunctive, oropharyngeal and nasal membrane mucosa. NECK: Supple. No JVD. No carotid bruit. No lymph node. No thyromegaly. CHEST AND LUNGS: Bilateral symmetrical expansion. Good air exchange. No rales. No rhonchi. CARDIOVASCULAR SYSTEM: PMI not localized. S1 and S2. ABDOMEN: Colostomy bag is in place. No tenderness. No organomegaly. No masses. EXTREMITIES: No cyanosis. No clubbing. No edema. CENTRAL NERVOUS SYSTEM: Alert, awake, oriented x2. No neurological deficit could be appreciated. ASSESSMENT: 1. Metastatic colorectal cancer, status post partial bowel resection with colostomy. 2. Hypertension. 3. Urinary tract infection. PLAN: Continue current IV antibiotics and medications. Physical therapy. Follow Oncology recommendations. [facility] MD Mumtaz
--- NOTE | 2017-10-24 01:40 | PN ---
DATE: 10/22/2017 SUBJECTIVE: Patient was complaining of right lower abdominal pain. PHYSICAL EXAMINATION: VITAL SIGNS: Blood pressure was 160/70, temperature 99.6, respiratory rate 19, and pulse 109. HEENT: Pupils equal, reactive to light. Normal-appearing mucosa of the conjunctivae, oropharynx, and nasal membrane mucosa. NECK: Supple. No JVD. No carotid bruit. No lymph node. No thyromegaly. CHEST AND LUNGS: Bilateral symmetrical expansion. Good air exchange. No rales, no rhonchi. CARDIOVASCULAR SYSTEM: PMI not localized. S1, S2. No additional sounds. ABDOMEN: Normoactive bowel sounds. No tenderness. No organomegaly. No masses. EXTREMITIES: No cyanosis, no clubbing, no edema. CENTRAL NERVOUS SYSTEM: Alert, awake, oriented x2. No neurological deficit could be appreciated. ASSESSMENT: 1. Urinary tract infection. 2. Right lower quadrant pain with no rebound tenderness or rigidity, likely spastic colon with irritable bowel. 3. Status post partial colectomy with colostomy. 4. Metastatic colorectal cancer. PLAN: We will give patient and monitor patient's abdominal pain. Continue current IV antibiotics. Jesus Pandya MD
[2017-10-24] MEDS: Meropenem 1 GM in Sodium Chloride 0.9% 100 ML IVPB SCH ×2 (04:48→16:39)
[2017-10-24 07:02] LABS: HEMATOCRIT 29.2 % (34.0-47.0); MEAN CELL VOLUME 76.6 fl (81.0-99.0); MEAN CORPUSCULAR HEMOGLOBIN 24.5 pg (27.0-31.0); MEAN CORPUSCULAR HGB CONC 31.9 g/dL (33.0-37.0); RED CELL DISTRIBUTION WIDTH 16.6 % (11.5-14.5); WHITE BLOOD COUNT 10.8 K/uL (4.8-10.8)
[2017-10-24 08:04] LABS: BLOOD UREA NITROGEN 14 mg/dl (7-17); CALCIUM 8.8 mg/dL (8.4-10.2); CARBON DIOXIDE 28 mmol/L (22-30); CHLORIDE 102 mmol/L (98-107); GFR AFRICAN-AMERICAN > 60; GLUCOSE,RANDOM 140 mg/dL (65-105); POTASSIUM 3.6 MMOL/L (3.6-5.0); SODIUM 138 mmol/l (132-148)
[2017-10-24] MEDS: Insulin Lispro (humaLOG) 100 Units/ml Inj SC SCH ×4 (09:09→22:21)
[2017-10-24] MEDS: Lactobacillus Acidophilus 500 MU Cap PO SCH ×2 (09:11→16:39)
[2017-10-24] MEDS: Calcitonin 200 Int Units/Inh Nasal Spray (3.7 ml) NAS SCH (09:12)
[2017-10-25] MEDS: Meropenem 1 GM in Sodium Chloride 0.9% 100 ML IVPB SCH ×2 (04:59→17:33)
[2017-10-25] MEDS: Lactobacillus Acidophilus 500 MU Cap PO SCH ×2 (08:28→17:32)
[2017-10-25] MEDS: Calcitonin 200 Int Units/Inh Nasal Spray (3.7 ml) NAS SCH (08:32)
[2017-10-25] MEDS: Insulin Lispro (humaLOG) 100 Units/ml Inj SC SCH ×4 (09:25→23:13)
[2017-10-26] MEDS: Meropenem 1 GM in Sodium Chloride 0.9% 100 ML IVPB SCH (06:24)
[2017-10-26 07:39] VITALS: BP 167/80; PULSE 86; RESP 20; TEMP 97.7; O2SAT 96
--- NOTE | 2017-10-26 08:27 | PN ---
DATE: 10/25/2017 DAILY PROGRESS NOTE SUBJECTIVE: Patient is seen today, 10/25/2017. She is not in any cardiopulmonary distress. Patient is afebrile on IV antibiotics. PHYSICAL EXAMINATION: VITAL SIGNS: Blood pressure is 146/74, temperature 98.1, respiratory rate 20 and pulse 87. HEENT: Pupils equal, reactive to light. Normal-appearing mucosa of the conjunctivae, oropharyngeal and nasal membrane mucosa. NECK: Supple. No JVD. No carotid bruit. No lymph nodes. No thyromegaly. CHEST AND LUNGS: Bilateral symmetrical expansion. Good air exchange. No rales, no rhonchi. CARDIOVASCULAR SYSTEM: PMI not localized. S1, S2. No additional sounds. ABDOMEN: Normoactive bowel sounds. No tenderness. No organomegaly. No masses. EXTREMITIES: No cyanosis, no clubbing, no edema. CENTRAL NERVOUS SYSTEM: Alert, awake, oriented x3. No neurological deficit could be appreciated. ASSESSMENT: 1. Symptomatic urinary tract infection. 2. Metastatic colon cancer status post bowel resection and colostomy. 3. Hypertension. PLAN: Continue current medications and IV antibiotics and if patient is stable, we will discharge tomorrow morning. Jesus Pandya MD
[2017-10-26] MEDS: Insulin Lispro (humaLOG) 100 Units/ml Inj SC SCH ×2 (08:47→12:24)
[2017-10-26] MEDS: Lactobacillus Acidophilus 500 MU Cap PO SCH (08:54)
--- NOTE | 2017-10-26 09:03 | CP.PCM.PN ---
Subjective - Date & Time of Evaluation Date of Evaluation: 10/26/17 Time of Evaluation: 09:01 - Subjective Subjective: Pt is afebrile , and feeling weell. Her urine c/s was repeated on 10.24.17, will ck the c/s.CBC is stable Objective - Vital Signs/Intake and Output Vital Signs (last 24 hours): Temp Pulse Resp BP Pulse Ox 97.7 F 86 20 167/80 H 96 10/26/17 07:38 10/26/17 08:54 10/26/17 07:38 10/26/17 08:54 10/26/17 07:38 - Medications Medications: Current Medications Acetaminophen (Tylenol 325mg Tab) 650 mg PO Q6 PRN PRN Reason: Pain, moderate (4-7) Amlodipine Besylate (Norvasc) 10 mg PO DAILY [facility] Last Admin: 10/26/17 08:49 Dose: 10 mg Aripiprazole (Abilify) 5 mg PO DAILY [facility] Last Admin: 10/26/17 08:47 Dose: 5 mg Calcitonin [place] (Miacalcin) 200 iu MARIYA DAILY [facility] Last Admin: 10/25/17 08:32 Dose: Not Given Dicyclomine HCl (Bentyl) 10 mg PO QID [facility] Last Admin: 10/26/17 08:46 Dose: 10 mg Docusate Sodium (Colace) 100 mg PO DAILY [facility] Last Admin: 10/26/17 08:46 Dose: 100 mg Heparin Sodium (Porcine) (Heparin) 5,000 units SC Q12 NIKOLAY PRN Reason: Protocol Last Admin: 10/26/17 08:47 Dose: Not Given Meropenem 1 gm/ Sodium (Chloride) 100 mls @ 100 mls/hr IVPB Q12H [facility] PRN Reason: Protocol Last Admin: 10/26/17 06:24 Dose: 100 mls/hr Insulin Human Lispro (Humalog) 0 units SC QID [facility] PRN Reason: Protocol Last Admin: 10/26/17 08:47 Dose: Not Given Lactobacillus Acidophilus (Bacid Acidophilus) 1 cap PO BID [facility] Last Admin: 10/26/17 08:54 Dose: 1 cap Lisinopril (Zestril) 10 mg PO DAILY [facility] Last Admin: 10/26/17 08:54 Dose: 10 mg Metoprolol Tartrate (Lopressor) 50 mg PO BID [facility] Last Admin: 10/26/17 08:48 Dose: 50 mg Ondansetron HCl (Zofran Inj) 4 mg IVP Q4 PRN PRN Reason: Nausea/Vomiting Sertraline HCl (Zoloft) 25 mg PO DAILY [facility] Last Admin: 10/26/17 08:50 Dose: 25 mg - Labs Labs: 10/24/17 06:30 10/24/17 06:30 PT 12.2 Seconds (9.8-13.1) 10/15/17 22:02 INR 1.1 (0.9-1.2) 10/15/17 22:02 APTT 27.1 Seconds (25.6-37.1) 10/15/17 22:02
[2017-10-26] MEDS: Calcitonin 200 Int Units/Inh Nasal Spray (3.7 ml) NAS SCH (09:48)
--- NOTE | 2017-10-26 12:28 | CP.PCM.PCO ---
Assessment/Plan - Assessment/Plan Assessment (Free Text): Pt stable, completed 1 week course of abx as per Dr. Koch. Pt seen and cleared for d/c home by Dr. Pandya. All Rx given.
== END 2017-10-26 16:15 | disposition home or self-care (01) | DRG 690 ==
LOC: H.ER 19:30 → H.ERHOLD 10-16 04:12 → H.MEDSURG1 10-16 05:43
PROVIDERS: ADMIT Internal Medicine; ATTEND Internal Medicine
DX: N39.0 Urinary tract infection, site not specified (principal); C78.7 Secondary malignant neoplasm of liver and intrahepatic bile duct; C79.89 Secondary malignant neoplasm of other specified sites; M48.56XA Collapsed vertebra, not elsewhere classified, lumbar region, initial encounter for fracture; F20.0 Paranoid schizophrenia; B96.1 Klebsiella pneumoniae [K. pneumoniae] as the cause of diseases classified elsewhere; Z85.048 Personal history of other malignant neoplasm of rectum, rectosigmoid junction, and anus; Z93.3 Colostomy status; I10 Essential (primary) hypertension; K58.9 Irritable bowel syndrome, unspecified; F31.9 Bipolar disorder, unspecified; Z92.21 Personal history of antineoplastic chemotherapy